=== PATIENT | male | born 1965 | race African-American/Black ===

== ENCOUNTER 2017-02-07 12:11 | Emergency (ER) | payer OTHER ==
[~2017-02-07] VITALS: Ht 172.7 cm; Wt 69.1 kg
[~2017-02-07 12:11] MED LIST: ASPI81TA42 PO; CARV12 PO; DOCU250C91 PO; HYDR-4174 PO; INSLAN SQ; INSU100C3 SQ; MULT1TAB11 PO; NIFE60TA12 PO; OMEP40CA12 PO; PERCT10 PO; PHOSLOC PO
[2017-02-07 12:21] LABS: GLUCOSE,POINT OF CARE 179 MG/DL (70-110)
[2017-02-07 13:50] LABS: EOSINOPHILS % (AUTO) 1.8 % (1.0-6.0); HEMATOCRIT 37.7 % (41-53); HEMOGLOBIN 12.1 g/dL (13.5-17.5); LYMPHOCYTES # (AUTO) 0.6 K/uL (1.0-4.8); LYMPHOCYTES % (AUTO) 9.6 % (22.0-44.0); MEAN CORPUSCULAR HEMOGLOBIN 32.8 pg (26.0-34.0); MEAN CORPUSCULAR VOLUME 103 fL (80-100); MONOCYTES # (AUTO) 0.3 K/uL (0.1-1.0); MONOCYTES % (AUTO) 4.4 % (2.0-9.0); NEUTROPHILS # (AUTO) 5.7 K/uL (1.8-7.7); NEUTROPHILS % (AUTO) 84.2 % (40.0-70.0); PLATELET COUNT (AUTO) 267 K/uL (150-450); RED BLOOD CELL COUNT(AUTO) 3.68 MIL/uL (4.50-5.90); WHITE BLOOD COUNT (AUTO) 6.7 K/uL (4.5-11.0)
[2017-02-07 13:58] LABS: CALCIUM, TOTAL 8.7 mg/dL (8.8-10.5); CREATININE 6.19 mg/dL (0.60-1.30); POTASSIUM 5.3 mmol/L (3.5-5.1)
[2017-02-07 14:04] LABS: ALBUMIN 3.2 g/dL (3.4-5.0); BILIRUBIN,TOTAL 0.4 mg/dL (0.1-1.0); TOTAL PROTEIN, SERUM 8.1 g/dL (6.4-8.2)
[2017-02-07 14:19] LABS: RBC MORPHOLOGY COMMENT ABNORMAL RBC MORPH
[2017-02-07 16:14] VITALS: BP 115/62
[2017-02-07] MEDS ORDERED: OxyCODONE HCL/ACETAMINOPHEN 10-325 MG TABLET PO ONE (16:15)
[2017-02-07] MEDS ORDERED: CefTRIAXone 1 GM/DEXTROSE 50 ML IV ONE (16:30)
== END 2017-02-07 17:01 | disposition home or self-care (01) ==
LOC: EMS 12:13
DX: B35.3 Tinea pedis (principal); E11.22 Type 2 diabetes mellitus with diabetic chronic kidney disease; I12.0 Hypertensive chronic kidney disease with stage 5 chronic kidney disease or end stage renal disease; N18.6 End stage renal disease; E78.00 Pure hypercholesterolemia, unspecified; F17.210 Nicotine dependence, cigarettes, uncomplicated; Z99.2 Dependence on renal dialysis; Z79.4 Long term (current) use of insulin; Z88.8 Allergy status to other drugs, medicaments and biological substances; Z91.018 Allergy to other foods
CPT/HCPCS: 36415; 73630; 80053; 82962; 85025; 87070; 87077; 87205; 96374; 99285; 99406; J0696

== ENCOUNTER 2017-05-29 11:30 | Emergency (ER) | payer OTHER ==
[~2017-05-29] VITALS: Ht 172.7 cm; Wt 69.5 kg
[~2017-05-29 11:30] MED LIST changes: -CARV12 PO; -HYDR-4174 PO; -NIFE60TA12 PO
[2017-05-29 11:42] LABS: GLUCOSE,POINT OF CARE 350 MG/DL (70-110)
[2017-05-29 13:16] LABS: BASOPHILS # (AUTO) 0.02 K/uL (0.00-0.20); BASOPHILS % (AUTO) 0.3 % (0.0-2.0); EOSINOPHILS % (AUTO) 1.77 % (1.0-6.0); HEMATOCRIT 38.9 % (41-53); HEMOGLOBIN 12.8 g/dL (13.5-17.5); LYMPHOCYTES # (AUTO) 0.7 K/uL (1.0-4.8); LYMPHOCYTES % (AUTO) 11.2 % (22.0-44.0); MEAN CORPUSCULAR HEMOGLOBIN 32.7 pg (26.0-34.0); MEAN CORPUSCULAR HGB CONC 32.8 G/dL (31.0-37.0); MEAN CORPUSCULAR VOLUME 100 fL (80-100); MONOCYTES # (AUTO) 0.4 K/uL (0.1-1.0); MONOCYTES % (AUTO) 6.6 % (2.0-9.0); NEUTROPHILS # (AUTO) 4.7 K/uL (1.8-7.7); NEUTROPHILS % (AUTO) 80.1 % (40.0-70.0); PLATELET COUNT (AUTO) 154 K/uL (150-450); RED BLOOD CELL COUNT(AUTO) 3.91 MIL/uL (4.50-5.90); RED CELL DISTRIBUTION WIDTH 14.3 % (11.5-14.5); WHITE BLOOD COUNT (AUTO) 5.9 K/uL (4.5-11.0)
[2017-05-29 13:25] LABS: ANION GAP 12 mmol/L (8-16); CALCIUM, TOTAL 8.8 mg/dL (8.8-10.5); CARBON DIOXIDE 28 mmol/L (22-29); CHLORIDE 90 mmol/L (98-107); CREATININE 10.39 mg/dL (0.60-1.30); GLOMERULAR FILTR. RATE CALC 6 mL/min (>60); POTASSIUM 3.8 mmol/L (3.5-5.1); SODIUM SERUM 130 mmol/L (136-145); UREA NITROGEN, BLOOD 33 mg/dL (7-18)
[2017-05-29 13:30] LABS: ALANINE AMINOTRANSFERASE 28 U/L (12-78); ALBUMIN 3.7 g/dL (3.4-5.0); ASPARTATE AMINOTRANSFERASE 25 U/L (15-37); BILIRUBIN,TOTAL 0.6 mg/dL (0.1-1.0); TOTAL PROTEIN, SERUM 7.6 g/dL (6.4-8.2)
[2017-05-29] MEDS ORDERED: INSULIN REGULAR, HUMAN 100 UNITS/ML IVP ONE (14:45)
[2017-05-29] MEDS ORDERED: ONDANSETRON HCL 4 MG/2 ML VIAL IVP ONE ×2 (14:45→18:45)
[2017-05-29] MEDS ORDERED: SODIUM CHLORIDE 0.9% 1,000 ML IV ONE ×2 (14:45→17:45)
[2017-05-29] MEDS ORDERED: MORPHINE SULFATE 4 MG/ML SYRINGE IVP ONE (14:45)
[2017-05-29] MEDS ORDERED: HYDROmorphone 2 MG/ML SYRINGE IVP ONE ×3 (14:45→18:45)
[2017-05-29 15:12] LABS: GLUCOSE,POINT OF CARE 455 MG/DL (70-110)
[2017-05-29 17:17] LABS: GLUCOSE,POINT OF CARE 325 MG/DL (70-110)
[2017-05-29 18:17] LABS: GLUCOSE,POINT OF CARE 287 MG/DL (70-110)
[2017-05-29 20:36] VITALS: BP 131/79
== END 2017-05-29 20:55 | disposition home or self-care (01) ==
LOC: EMS 11:32
DX: R10.32 Left lower quadrant pain (principal); R11.2 Nausea with vomiting, unspecified; I12.0 Hypertensive chronic kidney disease with stage 5 chronic kidney disease or end stage renal disease; E11.22 Type 2 diabetes mellitus with diabetic chronic kidney disease; N18.6 End stage renal disease; E11.65 Type 2 diabetes mellitus with hyperglycemia; E78.00 Pure hypercholesterolemia, unspecified; F12.90 Cannabis use, unspecified, uncomplicated; F17.210 Nicotine dependence, cigarettes, uncomplicated; Z79.4 Long term (current) use of insulin; Z91.018 Allergy to other foods; Z99.2 Dependence on renal dialysis
CPT/HCPCS: 36415; 80053; 82009; 82962; 83690; 83880; 85025; 93005; 96361; 96374; 96375; 96376; 99285; J1170; J1815; J2405; J7030

== ENCOUNTER 2017-05-29 21:57 | Emergency (ER) | payer OTHER ==
[~2017-05-29] VITALS: Ht 172.7 cm; Wt 69.5 kg
[2017-05-29 22:15] VITALS: BP 139/78
[2017-05-29 22:27] LABS: GLUCOSE,POINT OF CARE 179 MG/DL (70-110)
== END 2017-05-30 00:06 | disposition left against medical advice (07) ==
LOC: EMS 21:57
DX: R10.9 Unspecified abdominal pain (principal); R11.10 Vomiting, unspecified; E11.9 Type 2 diabetes mellitus without complications; I11.9 Hypertensive heart disease without heart failure; E78.00 Pure hypercholesterolemia, unspecified; F17.210 Nicotine dependence, cigarettes, uncomplicated; Z53.21 Procedure and treatment not carried out due to patient leaving prior to being seen by health care provider
CPT/HCPCS: 82962

== ENCOUNTER 2019-04-02 18:03 | Inpatient (IN) | payer OTHER ==
[~2019-04-02] VITALS: Ht 175.3 cm; Wt 71.3 kg
[~2019-04-02 18:03] MED LIST changes: +AMLO-512 PO; +ASPI81TA40 PO; -ASPI81TA42 PO; +HYDR-2924 PO; +PARI1CAP PO; +TRAM50TA4 PO
[2019-04-02 19:46] LABS: GLUCOSE,POINT OF CARE 490 MG/DL (70-110)
[2019-04-02] MEDS ORDERED: ACETAMINOPHEN 325 MG TABLET PO PRN (21:15)
[2019-04-02] MEDS ORDERED: BISACODYL 10 MG RECTAL RECTAL SUPPOSITORY PR PRN (21:15)
[2019-04-02 21:18] LABS: BASOPHILS % (AUTO) 0.8 % (0.0-2.0); HEMATOCRIT 40.5 % (41-53); LYMPHOCYTES # (AUTO) 0.6 K/uL (1.0-4.8); LYMPHOCYTES % (AUTO) 9.5 % (22.0-44.0); MEAN CORPUSCULAR HEMOGLOBIN 30.1 pg (26.0-34.0); MEAN CORPUSCULAR HGB CONC 32.1 G/dL (31.0-37.0); MEAN CORPUSCULAR VOLUME 94 fL (80-100); MONOCYTES # (AUTO) 0.5 K/uL (0.1-1.0); NEUTROPHILS # (AUTO) 4.7 K/uL (1.8-7.7); NEUTROPHILS % (AUTO) 79.7 % (40.0-70.0); PLATELET COUNT (AUTO) 193 K/uL (150-450); RED BLOOD CELL COUNT(AUTO) 4.32 MIL/uL (4.50-5.90); RED CELL DISTRIBUTION WIDTH 16.2 % (11.5-14.5)
[2019-04-02] MEDS ORDERED: AmLODIPine BESYLATE 5 MG TABLET PO SCH (21:30)
[2019-04-02] MEDS ORDERED: HydrALAZINE HCL 20 MG/ML VIAL IVP ONE (21:30)
[2019-04-02] MEDS ORDERED: NITROGLYCERIN 0.4 MG SUBLINGUAL TABLET #25 SL ONE (21:30)
[2019-04-02] MEDS ORDERED: DEXTROSE 50%-WATER 25 GM/50 ML SYRINGE IVP PRN (21:30)
[2019-04-02] MEDS ORDERED: NITROGLYCERIN 2% (1 GM=INCH) PACKET TP ONE (21:30)
[2019-04-02 21:42] LABS: ALBUMIN 3.2 g/dL (3.4-5.0); BILIRUBIN,TOTAL 0.4 mg/dL (0.1-1.0); CALCIUM, TOTAL 8.2 mg/dL (8.8-10.5); CREATININE 10.54 mg/dL (0.60-1.30); POTASSIUM 5.4 mmol/L (3.5-5.1); TOTAL PROTEIN, SERUM 7.6 g/dL (6.4-8.2)
[2019-04-02] MEDS ORDERED: INSULIN REGULAR, HUMAN 100 UNITS/ML IVP ONE (21:45)
[2019-04-02] MEDS ORDERED: BUMETANIDE 0.25 MG/ML 4 ML VIAL IVP ONE (22:30)
[2019-04-02] MEDS: LOSARTAN POTASSIUM 50 MG TABLET PO SCH (22:30)
[2019-04-02 23:02] LABS: GLUCOSE,POINT OF CARE 473 MG/DL (70-110)
[2019-04-03] VITALS (8 sets, daily range): BP systolic 150–188; BP diastolic 75–96
[2019-04-03 00:56] LABS: GLUCOSE,POINT OF CARE 452 MG/DL (70-110)
[2019-04-03] MEDS: INSULIN LISPRO 100 UNITS/ML SQ PRN ×3 (02:47→21:25)
[2019-04-03 07:54] LABS: GLUCOMETER DEV NAME(LOC) 5S.1; GLUCOSE,POINT OF CARE 437 MG/DL (70-110)
[2019-04-03] MEDS: DOCUSATE SODIUM 100 MG CAPSULE PO SCH ×2 (08:24→21:18)
[2019-04-03] MEDS: LABETALOL HCL 100 MG TABLET PO SCH ×2 (08:24→21:18)
[2019-04-03] MEDS: FAMOTIDINE 20 MG TABLET PO SCH (08:24)
[2019-04-03] MEDS: LOSARTAN POTASSIUM 50 MG TABLET PO SCH ×2 (08:24→21:18)
[2019-04-03] MEDS: ASPIRIN 81 MG CHEWABLE TABLET PO SCH (08:24)
[2019-04-03] MEDS: HEPARIN SODIUM,PORCINE 5,000 UNITS/ML VIAL SQ SCH ×3 (08:26→21:18)
[2019-04-03] MEDS: INSULIN GLARGINE,HUM.REC.ANLOG 100 UNITS/ML SQ SCH ×2 (08:29→21:25)
[2019-04-03] MEDS ORDERED: SODIUM CHLORIDE 0.9% 2,000 ML IV ONE (08:47)
[2019-04-03 11:14] LABS: GLUCOMETER DEV NAME(LOC) 5S.1; GLUCOSE,POINT OF CARE 170 MG/DL (70-110)
[2019-04-03 12:40] LABS: GLUCOMETER DEV NAME(LOC) 5S.1; GLUCOSE,POINT OF CARE 91 MG/DL (70-110)
[2019-04-03] MEDS: OxyCODONE HCL/ACETAMINOPHEN 5-325 MG TABLET PO PRN (14:04)
[2019-04-03] MEDS: CloNIDine HCL 0.1 MG TABLET PO PRN (14:04)
[2019-04-03] MEDS ORDERED: AmLODIPine BESYLATE 10 MG TABLET PO SCH (21:00)
[2019-04-04 04:33] VITALS: BP 165/88
[2019-04-04] MEDS: OxyCODONE HCL/ACETAMINOPHEN 5-325 MG TABLET PO PRN ×2 (04:42→09:17)
[2019-04-04 07:45] LABS: GLUCOMETER DEV NAME(LOC) 5S.1; GLUCOSE,POINT OF CARE 184 MG/DL (70-110)
[2019-04-04 08:20] VITALS: BP 177/92
[2019-04-04] MEDS: ASPIRIN 81 MG CHEWABLE TABLET PO SCH (09:15)
[2019-04-04] MEDS: FAMOTIDINE 20 MG TABLET PO SCH (09:15)
[2019-04-04] MEDS: LOSARTAN POTASSIUM 50 MG TABLET PO SCH (09:15)
[2019-04-04] MEDS: LABETALOL HCL 100 MG TABLET PO SCH (09:15)
[2019-04-04] MEDS: DOCUSATE SODIUM 100 MG CAPSULE PO SCH (09:16)
[2019-04-04] MEDS: HEPARIN SODIUM,PORCINE 5,000 UNITS/ML VIAL SQ SCH (09:16)
[2019-04-04] MEDS: INSULIN GLARGINE,HUM.REC.ANLOG 100 UNITS/ML SQ SCH (09:17)
[2019-04-04] MEDS ORDERED: MANNITOL 25%-12.5 GM/50 ML VIAL IVP PRN (11:00)
[2019-04-04] MEDS: CloNIDine HCL 0.1 MG TABLET PO PRN (12:30)
[2019-04-04 13:14] LABS: GLUCOMETER DEV NAME(LOC) 5N.2; GLUCOSE,POINT OF CARE 97 MG/DL (70-110)
[2019-04-05] MEDS ORDERED: PARICALCITOL 1 MCG CAPSULE PO SCH (09:00)
[2019-04-06 06:39] LABS: GLUCOMETER DEV NAME(LOC) 5S.3; GLUCOSE,POINT OF CARE 325 MG/DL (70-110)
[2019-04-06 06:40] LABS: GLUCOMETER DEV NAME(LOC) 5S.3; GLUCOSE,POINT OF CARE 233 MG/DL (70-110)
[2019-04-06 06:40] LABS: GLUCOMETER DEV NAME(LOC) 5S.3; GLUCOSE,POINT OF CARE 99 MG/DL (70-110)
[2019-04-06 06:40] LABS: GLUCOMETER DEV NAME(LOC) 5S.3; GLUCOSE,POINT OF CARE 45 MG/DL (70-110)
== END 2019-04-04 14:06 | disposition home or self-care (01) | DRG 425 ==
LOC: EMS 18:05 → 5S 04-03 00:37
PROVIDERS: ADMIT Internal Medicine; ATTEND Internal Medicine
PROC: 5A1D70Z Performance of Urinary Filtration, Intermittent, Less than 6 Hours Per Day (ICD-10-PCS; principal; 2019-04-03)
PROC: 5A1D70Z Performance of Urinary Filtration, Intermittent, Less than 6 Hours Per Day (ICD-10-PCS; 2019-04-04)
DX: E87.5 Hyperkalemia (principal); I13.2 Hypertensive heart and chronic kidney disease with heart failure and with stage 5 chronic kidney disease, or end stage renal disease; E44.0 Moderate protein-calorie malnutrition; E11.40 Type 2 diabetes mellitus with diabetic neuropathy, unspecified; E11.22 Type 2 diabetes mellitus with diabetic chronic kidney disease; E87.2 Acidosis; I16.1 Hypertensive emergency; N18.6 End stage renal disease; E11.65 Type 2 diabetes mellitus with hyperglycemia; E87.1 Hypo-osmolality and hyponatremia; E83.51 Hypocalcemia; E83.39 Other disorders of phosphorus metabolism; D63.8 Anemia in other chronic diseases classified elsewhere; E78.00 Pure hypercholesterolemia, unspecified; G89.29 Other chronic pain; I50.9 Heart failure, unspecified; F12.90 Cannabis use, unspecified, uncomplicated; F17.210 Nicotine dependence, cigarettes, uncomplicated; N25.81 Secondary hyperparathyroidism of renal origin; R62.7 Adult failure to thrive; Z82.49 Family history of ischemic heart disease and other diseases of the circulatory system; Z79.4 Long term (current) use of insulin; Z91.19 Patient's noncompliance with other medical treatment and regimen; Z68.23 Body mass index [BMI] 23.0-23.9, adult; Z91.018 Allergy to other foods; Z83.3 Family history of diabetes mellitus; Z99.2 Dependence on renal dialysis; Z79.899 Other long term (current) drug therapy
CPT/HCPCS: 87081; 93005; 96374; 96375; G0378; J0360; J1644; J1815; J3490; J7030

== ENCOUNTER 2019-05-17 09:27 | Emergency (ER) | payer OTHER ==
[~2019-05-17] VITALS: Ht 175.3 cm; Wt 75.0 kg
[~2019-05-17 09:27] MED LIST changes: -AMLO-512 PO; +AMLO10TA7 PO; -PARI1CAP PO; +PARI1CAP11 PO
[2019-05-17] MEDS ORDERED: HydrALAZINE HCL 25 MG TABLET PO ONE (09:45)
[2019-05-17] MEDS ORDERED: AmLODIPine BESYLATE 5 MG TABLET PO ONE (09:45)
[2019-05-17 09:53] LABS: BASOPHILS % (AUTO) 3.3 % (0.0-2.0); EOSINOPHILS % (AUTO) 8.8 % (1.0-6.0); HEMOGLOBIN 12.6 g/dL (13.5-17.5); LYMPHOCYTES # (AUTO) 0.9 K/uL (1.0-4.8); LYMPHOCYTES % (AUTO) 22.1 % (22.0-44.0); MEAN CORPUSCULAR HEMOGLOBIN 30.3 pg (26.0-34.0); MEAN CORPUSCULAR HGB CONC 32.2 G/dL (31.0-37.0); MEAN CORPUSCULAR VOLUME 94 fL (80-100); MONOCYTES # (AUTO) 0.6 K/uL (0.1-1.0); MONOCYTES % (AUTO) 14.8 % (2.0-9.0); NEUTROPHILS # (AUTO) 2.1 K/uL (1.8-7.7); PLATELET COUNT (AUTO) 141 K/uL (150-450); RED BLOOD CELL COUNT(AUTO) 4.15 MIL/uL (4.50-5.90); RED CELL DISTRIBUTION WIDTH 15.7 % (11.5-14.5)
[2019-05-17 10:32] LABS: CALCIUM, TOTAL 8.9 mg/dL (8.8-10.5); CREATININE 6.97 mg/dL (0.60-1.30); POTASSIUM 3.5 mmol/L (3.5-5.1)
[2019-05-17 10:37] LABS: ALBUMIN 3.5 g/dL (3.4-5.0); BILIRUBIN,TOTAL 0.5 mg/dL (0.1-1.0); TOTAL PROTEIN, SERUM 7.5 g/dL (6.4-8.2)
[2019-05-17 11:36] LABS: GLUCOSE,POINT OF CARE 130 MG/DL (70-110)
[2019-05-17 12:06] LABS: GLUCOSE,POINT OF CARE 107 MG/DL (70-110)
[2019-05-17 13:15] LABS: GLUCOSE,POINT OF CARE 160 MG/DL (70-110)
[2019-05-17 13:21] VITALS: BP 140/67
== END 2019-05-17 13:32 | disposition home or self-care (01) ==
LOC: EMS 09:28
DX: E11.649 Type 2 diabetes mellitus with hypoglycemia without coma (principal); I13.11 Hypertensive heart and chronic kidney disease without heart failure, with stage 5 chronic kidney disease, or end stage renal disease; E11.22 Type 2 diabetes mellitus with diabetic chronic kidney disease; N18.6 End stage renal disease; E78.00 Pure hypercholesterolemia, unspecified; F17.210 Nicotine dependence, cigarettes, uncomplicated; F12.90 Cannabis use, unspecified, uncomplicated; Z99.2 Dependence on renal dialysis; Z79.4 Long term (current) use of insulin; Z79.82 Long term (current) use of aspirin; Z91.018 Allergy to other foods

== ENCOUNTER 2019-05-24 23:32 | Emergency (ER) | payer OTHER ==
[~2019-05-24] VITALS: Ht 172.7 cm; Wt 70.5 kg
[2019-05-25] MEDS ORDERED: OxyCODONE HCL/ACETAMINOPHEN 10-325 MG TABLET PO ONE (00:30)
[2019-05-25 00:40] LABS: GLUCOSE,POINT OF CARE 85 MG/DL (70-110)
[2019-05-25 01:39] VITALS: BP 146/89
== END 2019-05-25 01:59 | disposition home or self-care (01) ==
LOC: EMS 23:34
DX: M54.5 Low back pain (principal); E11.9 Type 2 diabetes mellitus without complications; G89.29 Other chronic pain; I11.9 Hypertensive heart disease without heart failure; E78.00 Pure hypercholesterolemia, unspecified; F17.210 Nicotine dependence, cigarettes, uncomplicated; F12.90 Cannabis use, unspecified, uncomplicated; Z79.4 Long term (current) use of insulin; Z91.018 Allergy to other foods

== ENCOUNTER 2019-06-16 11:36 | Inpatient (IN) | payer OTHER ==
[~2019-06-16] VITALS: Ht 172.7 cm; Wt 64.2 kg
[2019-06-16 12:11] LABS: GLUCOSE,POINT OF CARE 266 MG/DL (70-110)
[2019-06-16 12:32] LABS: EOSINOPHILS % (AUTO) 2.5 % (1.0-6.0); HEMATOCRIT 31.4 % (41-53); HEMOGLOBIN 10.1 g/dL (13.5-17.5); LYMPHOCYTES # (AUTO) 0.8 K/uL (1.0-4.8); LYMPHOCYTES % (AUTO) 10.2 % (22.0-44.0); MEAN CORPUSCULAR HEMOGLOBIN 29.9 pg (26.0-34.0); MEAN CORPUSCULAR HGB CONC 32.1 G/dL (31.0-37.0); MEAN CORPUSCULAR VOLUME 93 fL (80-100); MONOCYTES # (AUTO) 0.9 K/uL (0.1-1.0); MONOCYTES % (AUTO) 11.6 % (2.0-9.0); NEUTROPHILS # (AUTO) 5.7 K/uL (1.8-7.7); NEUTROPHILS % (AUTO) 74.7 % (40.0-70.0); PLATELET COUNT (AUTO) 165 K/uL (150-450); RED BLOOD CELL COUNT(AUTO) 3.36 MIL/uL (4.50-5.90)
[2019-06-16 12:44] LABS: INR 0.9 (0.9-1.1); PROTHROMBIN TIME 9.9 SEC (9.4-11.6)
[2019-06-16 12:51] LABS: ALBUMIN 3.1 g/dL (3.4-5.0); BILIRUBIN,TOTAL 0.5 mg/dL (0.1-1.0); CALCIUM, TOTAL 9.1 mg/dL (8.8-10.5); CREATININE 7.14 mg/dL (0.60-1.30); TOTAL PROTEIN, SERUM 7.3 g/dL (6.4-8.2)
[2019-06-16 12:53] LABS: POTASSIUM 6.1 mmol/L (3.5-5.1)
[2019-06-16] MEDS ORDERED: CALCIUM GLUCONATE 1,000 MG in DEXTROSE 5%-WATER 50 ML IV ONE (13:00)
[2019-06-16] MEDS ORDERED: ALBUTEROL SULFATE 5 MG/ML 20 ML NEB SOLN [BULK] NEB ONE (13:00)
[2019-06-16] MEDS ORDERED: DEXTROSE 50%-WATER 25 GM/50 ML SYRINGE IVP ONE (13:00)
[2019-06-16] MEDS ORDERED: INSULIN REGULAR, HUMAN 100 UNITS/ML IVP ONE (13:00)
[2019-06-16] MEDS ORDERED: SODIUM POLYSTYRENE SULFONATE 15 GM/60 ML SUSPENSION BOTTLE PO ONE (13:00)
[2019-06-16] MEDS ORDERED: ACETAMINOPHEN 325 MG TABLET PO PRN ×2 (14:00→15:30)
[2019-06-16] MEDS ORDERED: ACETAMINOPHEN 500 MG TABLET PO ONE (14:00)
[2019-06-16] MEDS ORDERED: 0.9% SODIUM CHLORIDE 10 ML SYRINGE IVP PRN (14:00)
[2019-06-16] MEDS ORDERED: ONDANSETRON HCL 4 MG/2 ML VIAL IVP PRN ×2 (14:00→15:30)
[2019-06-16] MEDS ORDERED: MAGNESIUM HYDROXIDE SUSPENSION 30 ML UDCUP PO PRN (15:30)
[2019-06-16] MEDS ORDERED: HYDROCODONE/ACETAMINOPHEN 5-325 MG TABLET PO PRN (15:30)
[2019-06-16] MEDS ORDERED: BISACODYL 10 MG RECTAL RECTAL SUPPOSITORY PR PRN (15:30)
[2019-06-16] MEDS ORDERED: ZOLPIDEM TARTRATE 5 MG TABLET PO PRN (15:30)
[2019-06-16] MEDS: HEPARIN SODIUM,PORCINE 5,000 UNITS/ML VIAL SQ SCH ×2 (15:54→23:53)
[2019-06-16] MEDS: HydrALAZINE HCL 50 MG TABLET PO SCH ×2 (15:54→21:24)
[2019-06-16 16:26] LABS: GLUCOSE,POINT OF CARE 276 MG/DL (70-110)
[2019-06-16] MEDS: CALCIUM ACETATE 667 MG CAPSULE PO SCH (16:33)
[2019-06-16] MEDS: MORPHINE SULFATE 2 MG/ML SYRINGE IVP PRN (19:50)
[2019-06-16] MEDS: INSULIN GLARGINE,HUM.REC.ANLOG 100 UNITS/ML SQ SCH (21:24)
[2019-06-16] MEDS: DOCUSATE SODIUM 100 MG CAPSULE PO SCH (21:24)
[2019-06-16 21:25] LABS: GLUCOSE,POINT OF CARE 309 MG/DL (70-110)
[2019-06-16 22:39] LABS: GLUCOSE,POINT OF CARE 323 MG/DL (70-110)
[2019-06-16 23:16] VITALS: BP 177/80
[2019-06-16] MEDS ORDERED: DEXTROSE 50%-WATER 25 GM/50 ML SYRINGE IVP PRN (23:45)
[2019-06-17] MEDS: MORPHINE SULFATE 2 MG/ML SYRINGE IVP PRN ×3 (00:06→20:16)
[2019-06-17] MEDS: INSULIN LISPRO 100 UNITS/ML SQ PRN ×4 (00:14→20:49)
[2019-06-17 05:22] VITALS: BP 167/88
[2019-06-17 06:44] LABS: BASOPHILS % (AUTO) 1.7 % (0.0-2.0); EOSINOPHILS % (AUTO) 2.2 % (1.0-6.0); HEMATOCRIT 32.7 % (41-53); HEMOGLOBIN 10.5 g/dL (13.5-17.5); LYMPHOCYTES # (AUTO) 1.1 K/uL (1.0-4.8); LYMPHOCYTES % (AUTO) 13.6 % (22.0-44.0); MEAN CORPUSCULAR HEMOGLOBIN 29.9 pg (26.0-34.0); MEAN CORPUSCULAR HGB CONC 32.2 G/dL (31.0-37.0); MEAN CORPUSCULAR VOLUME 93 fL (80-100); MONOCYTES # (AUTO) 0.9 K/uL (0.1-1.0); MONOCYTES % (AUTO) 11.5 % (2.0-9.0); NEUTROPHILS # (AUTO) 5.8 K/uL (1.8-7.7); PLATELET COUNT (AUTO) 192 K/uL (150-450); RED BLOOD CELL COUNT(AUTO) 3.52 MIL/uL (4.50-5.90); RED CELL DISTRIBUTION WIDTH 17.1 % (11.5-14.5)
[2019-06-17 07:03] LABS: ALBUMIN 2.9 g/dL (3.4-5.0); BILIRUBIN,TOTAL 0.5 mg/dL (0.1-1.0); CALCIUM, TOTAL 8.6 mg/dL (8.8-10.5); CREATININE 5.46 mg/dL (0.60-1.30); POTASSIUM 4.3 mmol/L (3.5-5.1)
[2019-06-17] MEDS: INSULIN GLARGINE,HUM.REC.ANLOG 100 UNITS/ML SQ SCH ×2 (08:31→20:49)
[2019-06-17] MEDS: HydrALAZINE HCL 50 MG TABLET PO SCH ×3 (08:45→20:16)
[2019-06-17] MEDS: HEPARIN SODIUM,PORCINE 5,000 UNITS/ML VIAL SQ SCH ×2 (08:45→20:39)
[2019-06-17] MEDS: AmLODIPine BESYLATE 10 MG TABLET PO SCH (08:45)
[2019-06-17] MEDS: CALCIUM ACETATE 667 MG CAPSULE PO SCH ×3 (08:45→18:01)
[2019-06-17] MEDS: DOCUSATE SODIUM 100 MG CAPSULE PO SCH ×2 (08:46→20:16)
[2019-06-17] MEDS: ASPIRIN 81 MG EC TABLET PO SCH (08:46)
[2019-06-17] MEDS: PANTOPRAZOLE SODIUM 40 MG DR TABLET PO SCH (08:56)
[2019-06-17 11:22] VITALS: BP 143/101
[2019-06-17 15:25] VITALS: BP 159/84
[2019-06-17 19:18] VITALS: BP 174/89
[2019-06-18] MEDS: CloNIDine HCL 0.1 MG TABLET PO PRN ×2 (00:14→12:13)
[2019-06-18] MEDS: MORPHINE SULFATE 2 MG/ML SYRINGE IVP PRN ×2 (01:12→10:50)
[2019-06-18 04:56] VITALS: BP 142/79
[2019-06-18 06:57] LABS: GLUCOMETER DEV NAME(LOC) 5N.1; GLUCOSE,POINT OF CARE 352 MG/DL (70-110)
[2019-06-18 06:57] LABS: GLUCOMETER DEV NAME(LOC) 5N.1; GLUCOSE,POINT OF CARE 206 MG/DL (70-110)
[2019-06-18 06:57] LABS: GLUCOMETER DEV NAME(LOC) 5N.2; GLUCOSE,POINT OF CARE 77 MG/DL (70-110)
[2019-06-18 06:57] LABS: GLUCOMETER DEV NAME(LOC) 5N.1; GLUCOSE,POINT OF CARE 310 MG/DL (70-110)
[2019-06-18 06:58] LABS: GLUCOMETER DEV NAME(LOC) 5N.1; GLUCOSE,POINT OF CARE 108 MG/DL (70-110)
[2019-06-18 06:58] LABS: GLUCOMETER DEV NAME(LOC) 5N.2; GLUCOSE,POINT OF CARE 375 MG/DL (70-110)
[2019-06-18 07:45] VITALS: BP 190/83
[2019-06-18] MEDS: HEPARIN SODIUM,PORCINE 5,000 UNITS/ML VIAL SQ SCH ×2 (07:46→21:00)
[2019-06-18] MEDS: PANTOPRAZOLE SODIUM 40 MG DR TABLET PO SCH (07:47)
[2019-06-18] MEDS: HydrALAZINE HCL 50 MG TABLET PO SCH ×3 (07:48→21:21)
[2019-06-18] MEDS: CALCIUM ACETATE 667 MG CAPSULE PO SCH ×3 (07:48→18:00)
[2019-06-18] MEDS: ASPIRIN 81 MG EC TABLET PO SCH (07:48)
[2019-06-18] MEDS: AmLODIPine BESYLATE 10 MG TABLET PO SCH (07:48)
[2019-06-18] MEDS: DOCUSATE SODIUM 100 MG CAPSULE PO SCH ×2 (07:48→21:22)
[2019-06-18] MEDS: INSULIN GLARGINE,HUM.REC.ANLOG 100 UNITS/ML SQ SCH ×2 (08:08→21:00)
[2019-06-18] MEDS ORDERED: PARICALCITOL 5 MCG/1 ML VIAL IVP SCH (09:00)
[2019-06-18 11:36] VITALS: BP 178/92
[2019-06-18] MEDS: INSULIN LISPRO 100 UNITS/ML SQ PRN (12:14)
[2019-06-18] MEDS ORDERED: SODIUM CHLORIDE 0.9% 1,000 ML IV ONE ×2 (12:34→17:40)
[2019-06-18 15:37] VITALS: BP 182/91
[2019-06-18 16:00] LABS: GLUCOMETER DEV NAME(LOC) 5N.1; GLUCOSE,POINT OF CARE 233 MG/DL (70-110)
[2019-06-18 19:23] VITALS: BP 151/83
[2019-06-18 23:29] VITALS: BP 164/86
[2019-06-19 01:08] LABS: GLUCOMETER DEV NAME(LOC) 5N.2; GLUCOSE,POINT OF CARE 87 MG/DL (70-110)
[2019-06-19 01:08] LABS: GLUCOMETER DEV NAME(LOC) 5N.2; GLUCOSE,POINT OF CARE 159 MG/DL (70-110)
[2019-06-19 04:14] VITALS: BP 163/78
[2019-06-19] MEDS: CALCIUM ACETATE 667 MG CAPSULE PO SCH (08:30)
[2019-06-19] MEDS: PANTOPRAZOLE SODIUM 40 MG DR TABLET PO SCH (08:30)
[2019-06-19] MEDS: HydrALAZINE HCL 50 MG TABLET PO SCH (08:31)
[2019-06-19] MEDS: DOCUSATE SODIUM 100 MG CAPSULE PO SCH (08:31)
[2019-06-19] MEDS: ASPIRIN 81 MG EC TABLET PO SCH (08:31)
[2019-06-19] MEDS: AmLODIPine BESYLATE 10 MG TABLET PO SCH (08:31)
[2019-06-19] MEDS: HEPARIN SODIUM,PORCINE 5,000 UNITS/ML VIAL SQ SCH (08:32)
[2019-06-19] MEDS: INSULIN GLARGINE,HUM.REC.ANLOG 100 UNITS/ML SQ SCH (08:35)
[2019-06-19 08:40] VITALS: BP 168/79
[2019-06-19] MEDS ORDERED: EPOETIN ALFA 10,000 UNITS/ML VIAL SQ SCH (09:00)
[2019-06-19] MEDS ORDERED: SODIUM CHLORIDE 0.9% 2,000 ML IV ONE (11:24)
[2019-06-20 00:50] LABS: GLUCOMETER DEV NAME(LOC) 5N.2; GLUCOSE,POINT OF CARE 155 MG/DL (70-110)
[2019-06-20 04:31] LABS: GLUCOMETER DEV NAME(LOC) 5N.1; GLUCOSE,POINT OF CARE 170 MG/DL (70-110)
== END 2019-06-19 11:15 | disposition home or self-care (01) | DRG 194 ==
LOC: EMS 11:45 → 5N 18:31
PROVIDERS: ADMIT Internal Medicine; ATTEND Internal Medicine
PROC: 5A1D70Z Performance of Urinary Filtration, Intermittent, Less than 6 Hours Per Day (ICD-10-PCS; principal; 2019-06-16)
PROC: 5A1D70Z Performance of Urinary Filtration, Intermittent, Less than 6 Hours Per Day (ICD-10-PCS; 2019-06-18)
DX: I13.2 Hypertensive heart and chronic kidney disease with heart failure and with stage 5 chronic kidney disease, or end stage renal disease (principal); I47.2 Ventricular tachycardia; E87.2 Acidosis; E46 Unspecified protein-calorie malnutrition; N18.6 End stage renal disease; E87.5 Hyperkalemia; I50.33 Acute on chronic diastolic (congestive) heart failure; E11.65 Type 2 diabetes mellitus with hyperglycemia; E83.39 Other disorders of phosphorus metabolism; E83.51 Hypocalcemia; D63.1 Anemia in chronic kidney disease; I16.0 Hypertensive urgency; E78.5 Hyperlipidemia, unspecified; F17.210 Nicotine dependence, cigarettes, uncomplicated; K21.9 Gastro-esophageal reflux disease without esophagitis; N25.81 Secondary hyperparathyroidism of renal origin; F12.90 Cannabis use, unspecified, uncomplicated; M54.5 Low back pain; E87.1 Hypo-osmolality and hyponatremia; R62.7 Adult failure to thrive; K31.9 Disease of stomach and duodenum, unspecified; E11.40 Type 2 diabetes mellitus with diabetic neuropathy, unspecified; E11.22 Type 2 diabetes mellitus with diabetic chronic kidney disease; E78.00 Pure hypercholesterolemia, unspecified; I25.10 Atherosclerotic heart disease of native coronary artery without angina pectoris; Z79.4 Long term (current) use of insulin; Z82.49 Family history of ischemic heart disease and other diseases of the circulatory system; Z99.2 Dependence on renal dialysis; Z83.3 Family history of diabetes mellitus; Z91.19 Patient's noncompliance with other medical treatment and regimen; Z68.21 Body mass index [BMI] 21.0-21.9, adult; Z91.018 Allergy to other foods; Z79.899 Other long term (current) drug therapy; Z79.82 Long term (current) use of aspirin; Z71.6 Tobacco abuse counseling
CPT/HCPCS: 83735; 87081; 93005; 93306; 99406; J0610; J0885; J1644; J1815; J2270; J2501; J7030; J7060

== ENCOUNTER 2019-06-22 05:28 | Inpatient (IN) | payer OTHER ==
[~2019-06-22] VITALS: Ht 172.7 cm; Wt 72.4 kg
[~2019-06-22 05:28] MED LIST changes: -PERCT10 PO
[2019-06-22] MEDS ORDERED: NALOXONE HCL 1 MG/ML 2 ML SYG IVP ONE (06:45)
[2019-06-22 09:31] LABS: BASOPHILS % (AUTO) 1.5 % (0.0-2.0); EOSINOPHILS % (AUTO) 3.7 % (1.0-6.0); HEMATOCRIT 29.2 % (41-53); HEMOGLOBIN 9.3 g/dL (13.5-17.5); LYMPHOCYTES # (AUTO) 0.9 K/uL (1.0-4.8); LYMPHOCYTES % (AUTO) 12.2 % (22.0-44.0); MEAN CORPUSCULAR HEMOGLOBIN 30.2 pg (26.0-34.0); MEAN CORPUSCULAR HGB CONC 31.9 G/dL (31.0-37.0); MEAN CORPUSCULAR VOLUME 94 fL (80-100); MONOCYTES # (AUTO) 0.7 K/uL (0.1-1.0); MONOCYTES % (AUTO) 9.4 % (2.0-9.0); NEUTROPHILS # (AUTO) 5.6 K/uL (1.8-7.7); NEUTROPHILS % (AUTO) 73.2 % (40.0-70.0); PLATELET COUNT (AUTO) 198 K/uL (150-450); RED BLOOD CELL COUNT(AUTO) 3.09 MIL/uL (4.50-5.90); RED CELL DISTRIBUTION WIDTH 17.6 % (11.5-14.5)
[2019-06-22 09:47] LABS: ANION GAP 11 mmol/L (8-16); CALCIUM, TOTAL 8.9 mg/dL (8.8-10.5); CARBON DIOXIDE 28 mmol/L (22-29); CHLORIDE 100 mmol/L (98-107); CREATININE 7.44 mg/dL (0.60-1.30); GLOMERULAR FILTR. RATE CALC 9 mL/min (>60); GLUCOSE,RANDOM 200 mg/dL (70-110); POTASSIUM 5.4 mmol/L (3.5-5.1); SODIUM SERUM 139 mmol/L (136-145); UREA NITROGEN, BLOOD 48 mg/dL (7-18)
[2019-06-22 09:53] LABS: ALANINE AMINOTRANSFERASE 38 U/L (12-78); ALBUMIN 3.2 g/dL (3.4-5.0); ALKALINE PHOSPHATASE 151 U/L (46-116); ASPARTATE AMINOTRANSFERASE 34 U/L (15-37); BILIRUBIN,TOTAL 0.4 mg/dL (0.1-1.0); TOTAL PROTEIN, SERUM 7.3 g/dL (6.4-8.2)
[2019-06-22 09:55] LABS: LACTIC ACID 0.9 mmol/L (0.4-2.0)
[2019-06-22 10:36] LABS: GLUCOSE,POINT OF CARE 188 MG/DL (70-110)
[2019-06-22] MEDS ORDERED: KETOROLAC TROMETHAMINE 30 MG/ML VIAL IM ONE (10:45)
[2019-06-22] MEDS: VITAMIN B COMP/VIT C/FOLIC ACID CAPSULE PO SCH (20:15)
[2019-06-22] MEDS: DOCUSATE SODIUM 250 MG CAPSULE PO SCH (20:15)
[2019-06-22] MEDS: FAMOTIDINE 20 MG TABLET PO SCH (20:15)
[2019-06-22] MEDS ORDERED: BISACODYL 10 MG RECTAL RECTAL SUPPOSITORY PR PRN (20:15)
[2019-06-22] MEDS ORDERED: ACETAMINOPHEN 325 MG TABLET PO PRN (20:15)
[2019-06-22] MEDS: ASPIRIN 81 MG EC TABLET PO SCH (20:15)
[2019-06-22] MEDS ORDERED: ONDANSETRON HCL 4 MG/2 ML VIAL IVP PRN (20:15)
[2019-06-22] MEDS ORDERED: HydrALAZINE HCL 20 MG/ML VIAL IVP ONE (20:15)
[2019-06-22] MEDS: AmLODIPine BESYLATE 10 MG TABLET PO SCH (20:15)
[2019-06-22] MEDS ORDERED: DEXTROSE 50%-WATER 25 GM/50 ML SYRINGE IVP PRN (20:15)
[2019-06-22] MEDS ORDERED: LABETALOL HCL 5 MG/ML 20 ML VIAL IVP PRN (20:30)
[2019-06-22 21:00] LABS: GLUCOSE,POINT OF CARE 262 MG/DL (70-110)
[2019-06-22] MEDS: CloNIDine HCL 0.1 MG TABLET PO SCH (21:00)
[2019-06-22 21:22] LABS: PROTHROMBIN TIME 10.2 SEC (9.4-11.6)
[2019-06-22 21:56] VITALS: BP 191/93
[2019-06-22] MEDS ORDERED: INSULIN GLARGINE,HUM.REC.ANLOG 100 UNITS/ML SQ SCH (22:00)
[2019-06-22] MEDS: INSULIN LISPRO 100 UNITS/ML SQ PRN (22:45)
[2019-06-22] MEDS: HydrALAZINE HCL 50 MG TABLET PO SCH (22:52)
[2019-06-22] MEDS: HEPARIN SODIUM,PORCINE 5,000 UNITS/ML VIAL SQ SCH (23:01)
[2019-06-23] VITALS (9 sets, daily range): BP systolic 134–193; BP diastolic 68–103
[2019-06-23 04:11] LABS: GLUCOMETER DEV NAME(LOC) 5N.1; GLUCOSE,POINT OF CARE 275 MG/DL (70-110)
[2019-06-23] MEDS ORDERED: SODIUM CHLORIDE 0.9% 1,000 ML IV ONE (06:05)
[2019-06-23 08:10] LABS: ALBUMIN 2.8 g/dL (3.4-5.0); BILIRUBIN,TOTAL 0.4 mg/dL (0.1-1.0); CALCIUM, TOTAL 8.4 mg/dL (8.8-10.5); CREATININE 6.21 mg/dL (0.60-1.30); POTASSIUM 4.3 mmol/L (3.5-5.1); TOTAL PROTEIN, SERUM 6.8 g/dL (6.4-8.2)
[2019-06-23 08:21] LABS: GLUCOMETER DEV NAME(LOC) 5N.1; GLUCOSE,POINT OF CARE 146 MG/DL (70-110)
[2019-06-23 08:21] LABS: GLUCOMETER DEV NAME(LOC) 5N.1; GLUCOSE,POINT OF CARE 13 MG/DL (70-110)
[2019-06-23 08:39] LABS: BASOPHILS % (AUTO) 1.1 % (0.0-2.0); HEMATOCRIT 27.7 % (41-53); HEMOGLOBIN 9.3 g/dL (13.5-17.5); LYMPHOCYTES # (AUTO) 0.5 K/uL (1.0-4.8); LYMPHOCYTES % (AUTO) 5.2 % (22.0-44.0); MEAN CORPUSCULAR HEMOGLOBIN 31.2 pg (26.0-34.0); MEAN CORPUSCULAR HGB CONC 33.6 G/dL (31.0-37.0); MEAN CORPUSCULAR VOLUME 93 fL (80-100); MONOCYTES # (AUTO) 0.6 K/uL (0.1-1.0); MONOCYTES % (AUTO) 6.1 % (2.0-9.0); NEUTROPHILS # (AUTO) 7.8 K/uL (1.8-7.7); PLATELET COUNT (AUTO) 209 K/uL (150-450); RED BLOOD CELL COUNT(AUTO) 2.99 MIL/uL (4.50-5.90); RED CELL DISTRIBUTION WIDTH 17.5 % (11.5-14.5)
[2019-06-23 08:44] LABS: NEUTROPHILS % (AUTO) 85.6 % (40.0-70.0)
[2019-06-23] MEDS: CloNIDine HCL 0.1 MG TABLET PO SCH ×2 (09:48→16:59)
[2019-06-23] MEDS: VITAMIN B COMP/VIT C/FOLIC ACID CAPSULE PO SCH (10:40)
[2019-06-23] MEDS: HEPARIN SODIUM,PORCINE 5,000 UNITS/ML VIAL SQ SCH ×3 (10:41→23:35)
[2019-06-23] MEDS: HydrALAZINE HCL 50 MG TABLET PO SCH ×4 (10:41→20:58)
[2019-06-23] MEDS: ASPIRIN 81 MG EC TABLET PO SCH (10:41)
[2019-06-23] MEDS: DOCUSATE SODIUM 250 MG CAPSULE PO SCH (10:41)
[2019-06-23] MEDS: FAMOTIDINE 20 MG TABLET PO SCH (10:41)
[2019-06-23] MEDS: CALCIUM ACETATE 667 MG CAPSULE PO SCH ×3 (10:42→16:59)
[2019-06-23] MEDS ORDERED: SODIUM CHLORIDE 0.9% 2,000 ML IV PRN (11:00)
[2019-06-23] MEDS: AmLODIPine BESYLATE 10 MG TABLET PO SCH (11:49)
[2019-06-23] MEDS: VALSARTAN 160 MG TABLET PO SCH ×2 (13:23→21:00)
[2019-06-23] MEDS: HYDROCODONE/ACETAMINOPHEN 5-325 MG TABLET PO PRN ×2 (13:36→20:58)
[2019-06-23 16:16] LABS: GLUCOMETER DEV NAME(LOC) 5N.1; GLUCOSE,POINT OF CARE 68 MG/DL (70-110)
[2019-06-23 16:16] LABS: GLUCOMETER DEV NAME(LOC) 5N.1; GLUCOSE,POINT OF CARE 109 MG/DL (70-110)
[2019-06-23 16:16] LABS: GLUCOMETER DEV NAME(LOC) 5N.1; GLUCOSE,POINT OF CARE 58 MG/DL (70-110)
[2019-06-23 16:16] LABS: GLUCOMETER DEV NAME(LOC) 5N.1; GLUCOSE,POINT OF CARE 51 MG/DL (70-110)
[2019-06-23 16:16] LABS: GLUCOMETER DEV NAME(LOC) 5N.1; GLUCOSE,POINT OF CARE 167 MG/DL (70-110)
[2019-06-23] MEDS: INSULIN LISPRO 100 UNITS/ML SQ PRN ×2 (17:19→20:58)
[2019-06-23 20:16] LABS: GLUCOMETER DEV NAME(LOC) 5N.1; GLUCOSE,POINT OF CARE 299 MG/DL (70-110)
[2019-06-23] MEDS ORDERED: INSULIN GLARGINE,HUM.REC.ANLOG 100 UNITS/ML SQ SCH (22:00)
[2019-06-23 23:36] LABS: GLUCOMETER DEV NAME(LOC) 5S.2A; GLUCOSE,POINT OF CARE 218 MG/DL (70-110)
[2019-06-24] VITALS (7 sets, daily range): BP systolic 103–178; BP diastolic 55–92
[2019-06-24] MEDS: CloNIDine HCL 0.1 MG TABLET PO SCH ×2 (00:14→09:24)
[2019-06-24] MEDS: HYDROCODONE/ACETAMINOPHEN 5-325 MG TABLET PO PRN ×3 (01:18→09:23)
[2019-06-24] MEDS: INSULIN LISPRO 100 UNITS/ML SQ PRN ×4 (06:15→21:21)
[2019-06-24] MEDS: HEPARIN SODIUM,PORCINE 5,000 UNITS/ML VIAL SQ SCH ×3 (08:00→23:07)
[2019-06-24] MEDS: CALCIUM ACETATE 667 MG CAPSULE PO SCH ×3 (08:32→17:19)
[2019-06-24] MEDS: ASPIRIN 81 MG EC TABLET PO SCH (09:23)
[2019-06-24] MEDS: AmLODIPine BESYLATE 10 MG TABLET PO SCH (09:23)
[2019-06-24] MEDS: VITAMIN B COMP/VIT C/FOLIC ACID CAPSULE PO SCH (09:23)
[2019-06-24] MEDS: HydrALAZINE HCL 50 MG TABLET PO SCH ×4 (09:23→21:15)
[2019-06-24] MEDS: FAMOTIDINE 20 MG TABLET PO SCH (09:23)
[2019-06-24] MEDS: VALSARTAN 160 MG TABLET PO SCH ×2 (09:23→21:00)
[2019-06-24] MEDS: DOCUSATE SODIUM 250 MG CAPSULE PO SCH (09:24)
[2019-06-24 09:32] LABS: BASOPHILS % (AUTO) 1.8 % (0.0-2.0); EOSINOPHILS % (AUTO) 3.6 % (1.0-6.0); HEMATOCRIT 32.2 % (41-53); HEMOGLOBIN 10.4 g/dL (13.5-17.5); MEAN CORPUSCULAR HEMOGLOBIN 30.4 pg (26.0-34.0); MEAN CORPUSCULAR HGB CONC 32.2 G/dL (31.0-37.0); MEAN CORPUSCULAR VOLUME 94 fL (80-100); MONOCYTES # (AUTO) 0.7 K/uL (0.1-1.0); MONOCYTES % (AUTO) 10.6 % (2.0-9.0); NEUTROPHILS # (AUTO) 4.4 K/uL (1.8-7.7); PLATELET COUNT (AUTO) 245 K/uL (150-450); RED BLOOD CELL COUNT(AUTO) 3.41 MIL/uL (4.50-5.90); RED CELL DISTRIBUTION WIDTH 18.2 % (11.5-14.5)
[2019-06-24 09:47] LABS: POTASSIUM 5.4 mmol/L (3.5-5.1)
[2019-06-24 10:01] LABS: ALBUMIN 3.1 g/dL (3.4-5.0); BILIRUBIN,TOTAL 0.5 mg/dL (0.1-1.0); CALCIUM, TOTAL 8.5 mg/dL (8.8-10.5); CREATININE 6.81 mg/dL (0.60-1.30); TOTAL PROTEIN, SERUM 7.6 g/dL (6.4-8.2)
[2019-06-24] MEDS ORDERED: DEXTROSE 50%-WATER 25 GM/50 ML SYRINGE IVP PRN (13:30)
[2019-06-24 14:41] LABS: GLUCOMETER DEV NAME(LOC) 5S.1; GLUCOSE,POINT OF CARE 197 MG/DL (70-110)
[2019-06-24] MEDS ORDERED: INSULIN GLARGINE,HUM.REC.ANLOG 100 UNITS/ML SQ SCH (21:00)
[2019-06-25 01:02] LABS: GLUCOMETER DEV NAME(LOC) 5S.1; GLUCOSE,POINT OF CARE 193 MG/DL (70-110)
[2019-06-25] MEDS: HYDROCODONE/ACETAMINOPHEN 5-325 MG TABLET PO PRN (03:17)
[2019-06-25 04:20] VITALS: BP 136/65
[2019-06-25 06:17] LABS: GLUCOMETER DEV NAME(LOC) 5S.1; GLUCOSE,POINT OF CARE 34 MG/DL (70-110)
[2019-06-25 06:26] LABS: GLUCOMETER DEV NAME(LOC) 5S.2A; GLUCOSE,POINT OF CARE 192 MG/DL (70-110)
[2019-06-25 06:27] LABS: GLUCOMETER DEV NAME(LOC) 5S.2A; GLUCOSE,POINT OF CARE 418 MG/DL (70-110)
[2019-06-25 06:27] LABS: GLUCOMETER DEV NAME(LOC) 5S.2A; GLUCOSE,POINT OF CARE 128 MG/DL (70-110)
[2019-06-25 06:47] LABS: BASOPHILS % (AUTO) 1.9 % (0.0-2.0); EOSINOPHILS % (AUTO) 5.4 % (1.0-6.0); HEMATOCRIT 30.4 % (41-53); HEMOGLOBIN 10.2 g/dL (13.5-17.5); LYMPHOCYTES # (AUTO) 0.7 K/uL (1.0-4.8); MEAN CORPUSCULAR HEMOGLOBIN 31.4 pg (26.0-34.0); MEAN CORPUSCULAR HGB CONC 33.5 G/dL (31.0-37.0); MEAN CORPUSCULAR VOLUME 94 fL (80-100); MONOCYTES # (AUTO) 0.8 K/uL (0.1-1.0); NEUTROPHILS # (AUTO) 2.5 K/uL (1.8-7.7); NEUTROPHILS % (AUTO) 56.7 % (40.0-70.0); PLATELET COUNT (AUTO) 232 K/uL (150-450); RED BLOOD CELL COUNT(AUTO) 3.24 MIL/uL (4.50-5.90); RED CELL DISTRIBUTION WIDTH 18.3 % (11.5-14.5)
[2019-06-25 07:04] LABS: ALBUMIN 2.9 g/dL (3.4-5.0); BILIRUBIN,TOTAL 0.4 mg/dL (0.1-1.0); CALCIUM, TOTAL 8.9 mg/dL (8.8-10.5); CREATININE 8.41 mg/dL (0.60-1.30); POTASSIUM 5.5 mmol/L (3.5-5.1); TOTAL PROTEIN, SERUM 7.1 g/dL (6.4-8.2)
[2019-06-25 07:57] VITALS: BP 163/84
[2019-06-25] MEDS: CALCIUM ACETATE 667 MG CAPSULE PO SCH ×2 (08:30→12:54)
[2019-06-25] MEDS ORDERED: PARICALCITOL 1 MCG CAPSULE PO SCH ×2 (09:00)
[2019-06-25] MEDS ORDERED: EPOETIN ALFA 10,000 UNITS/ML VIAL SQ SCH (09:00)
[2019-06-25] MEDS: DOCUSATE SODIUM 250 MG CAPSULE PO SCH (09:00)
[2019-06-25] MEDS ORDERED: HYDR-4174 PO (10:58)
[2019-06-25] MEDS ORDERED: HYDR-2924 PO (10:59)
[2019-06-25] MEDS ORDERED: VALS160T2 PO (11:00)
[2019-06-25] MEDS ORDERED: CLON.3 PO (11:01)
[2019-06-25] MEDS ORDERED: [UNRECOGNIZED DRUG - CODE] SQ (11:05)
[2019-06-25 11:16] VITALS: BP 167/89
[2019-06-25] MEDS: ASPIRIN 81 MG EC TABLET PO SCH (12:53)
[2019-06-25] MEDS: VITAMIN B COMP/VIT C/FOLIC ACID CAPSULE PO SCH (12:53)
[2019-06-25] MEDS: AmLODIPine BESYLATE 10 MG TABLET PO SCH (12:54)
[2019-06-25] MEDS: VALSARTAN 160 MG TABLET PO SCH (12:54)
[2019-06-25] MEDS: HydrALAZINE HCL 25 MG TABLET PO SCH ×2 (12:54→13:00)
[2019-06-25] MEDS: FAMOTIDINE 20 MG TABLET PO SCH (12:54)
[2019-06-25] MEDS: HEPARIN SODIUM,PORCINE 5,000 UNITS/ML VIAL SQ SCH (12:55)
[2019-06-25] MEDS: INSULIN LISPRO 100 UNITS/ML SQ PRN (12:59)
[2019-06-25 13:36] LABS: ETHANOL LEVEL Negative % (0.000-0.010)
[2019-06-26 13:01] LABS: GLUCOMETER DEV NAME(LOC) 5S.1; GLUCOSE,POINT OF CARE 217 MG/DL (70-110)
[2019-06-26 13:01] LABS: GLUCOMETER DEV NAME(LOC) 5S.1; GLUCOSE,POINT OF CARE 145 MG/DL (70-110)
== END 2019-06-25 15:00 | disposition home or self-care (01) | DRG 199 ==
LOC: EMS 05:31 → 5S 22:11
PROVIDERS: ADMIT Internal Medicine; ATTEND Internal Medicine
PROC: 5A1D70Z Performance of Urinary Filtration, Intermittent, Less than 6 Hours Per Day (ICD-10-PCS; principal; 2019-06-23)
PROC: 5A1D70Z Performance of Urinary Filtration, Intermittent, Less than 6 Hours Per Day (ICD-10-PCS; 2019-06-25)
DX: I16.0 Hypertensive urgency (principal); G93.41 Metabolic encephalopathy; R64 Cachexia; E46 Unspecified protein-calorie malnutrition; E10.649 Type 1 diabetes mellitus with hypoglycemia without coma; E10.22 Type 1 diabetes mellitus with diabetic chronic kidney disease; D63.8 Anemia in other chronic diseases classified elsewhere; S82.62XA Displaced fracture of lateral malleolus of left fibula, initial encounter for closed fracture; E83.39 Other disorders of phosphorus metabolism; E83.51 Hypocalcemia; E87.5 Hyperkalemia; I13.11 Hypertensive heart and chronic kidney disease without heart failure, with stage 5 chronic kidney disease, or end stage renal disease; N18.6 End stage renal disease; R62.7 Adult failure to thrive; N25.81 Secondary hyperparathyroidism of renal origin; E78.00 Pure hypercholesterolemia, unspecified; F12.90 Cannabis use, unspecified, uncomplicated; D64.9 Anemia, unspecified; Z83.3 Family history of diabetes mellitus; Z82.49 Family history of ischemic heart disease and other diseases of the circulatory system; F17.200 Nicotine dependence, unspecified, uncomplicated; I25.10 Atherosclerotic heart disease of native coronary artery without angina pectoris; E78.5 Hyperlipidemia, unspecified; Z91.11 Patient's noncompliance with dietary regimen; Z91.15 Patient's noncompliance with renal dialysis; Z99.2 Dependence on renal dialysis; W18.39XA Other fall on same level, initial encounter; Y93.89 Activity, other specified; Y92.098 Other place in other non-institutional residence as the place of occurrence of the external cause; Y99.8 Other external cause status; M48.00 Spinal stenosis, site unspecified; M51.36 Other intervertebral disc degeneration, lumbar region; Z91.19 Patient's noncompliance with other medical treatment and regimen; Z68.24 Body mass index [BMI] 24.0-24.9, adult
CPT/HCPCS: 70450; 72131; 72170; 80184; 80185; 80320; 80329; 80337; 80342; 80345; 80346; 82010; 83605; 84550; 84600; 87081; 87340; 93005; 97116; 97162; 97530; G0480; J0360; J0885; J1644; J1815; J1885; J2310; J7030

== ENCOUNTER 2019-07-14 19:00 | Inpatient (IN) | payer OTHER ==
[~2019-07-14] VITALS: Ht 182.9 cm; Wt 70.8 kg
[~2019-07-14 19:00] MED LIST changes: +CLON.3 PO; +DOCU-342 PO; -DOCU250C91 PO; -INSLAN SQ; +VALS160T2 PO; +[UNRECOGNIZED DRUG - CODE] SQ
[2019-07-14] MEDS ORDERED: NALOXONE HCL 1 MG/ML 2 ML SYG IVP ONE (19:45)
[2019-07-14 19:47] LABS: BASOPHILS % (AUTO) 1.1 % (0.0-2.0); EOSINOPHILS % (AUTO) 1.6 % (1.0-6.0); HEMATOCRIT 33.7 % (41-53); HEMOGLOBIN 10.7 g/dL (13.5-17.5); LYMPHOCYTES # (AUTO) 0.7 K/uL (1.0-4.8); LYMPHOCYTES % (AUTO) 12.4 % (22.0-44.0); MEAN CORPUSCULAR HEMOGLOBIN 29.8 pg (26.0-34.0); MEAN CORPUSCULAR HGB CONC 31.8 G/dL (31.0-37.0); MEAN CORPUSCULAR VOLUME 94 fL (80-100); MONOCYTES # (AUTO) 0.4 K/uL (0.1-1.0); MONOCYTES % (AUTO) 8.1 % (2.0-9.0); NEUTROPHILS # (AUTO) 4.1 K/uL (1.8-7.7); NEUTROPHILS % (AUTO) 76.8 % (40.0-70.0); PLATELET COUNT (AUTO) 284 K/uL (150-450); RED BLOOD CELL COUNT(AUTO) 3.59 MIL/uL (4.50-5.90)
[2019-07-14 20:05] LABS: ANION GAP 13 mmol/L (8-16); CALCIUM, TOTAL 8.7 mg/dL (8.8-10.5); CARBON DIOXIDE 29 mmol/L (22-29); CHLORIDE 98 mmol/L (98-107); CREATININE 6.32 mg/dL (0.60-1.30); GLOMERULAR FILTR. RATE CALC 11 mL/min (>60); GLUCOSE,RANDOM 335 mg/dL (70-110); POTASSIUM 5.3 mmol/L (3.5-5.1); SODIUM SERUM 140 mmol/L (136-145); UREA NITROGEN, BLOOD 39 mg/dL (7-18)
[2019-07-14 20:11] LABS: ALANINE AMINOTRANSFERASE 47 U/L (12-78); ALBUMIN 3.3 g/dL (3.4-5.0); ALKALINE PHOSPHATASE 234 U/L (46-116); ASPARTATE AMINOTRANSFERASE 62 U/L (15-37); BILIRUBIN,TOTAL 0.5 mg/dL (0.1-1.0); TOTAL PROTEIN, SERUM 7.8 g/dL (6.4-8.2)
[2019-07-14] MEDS ORDERED: LORazepam 2 MG/ML VIAL IVP ONE (20:15)
[2019-07-14 20:16] LABS: LACTIC ACID 1.2 mmol/L (0.4-2.0)
[2019-07-14 20:50] LABS: GLUCOSE,POINT OF CARE 286 MG/DL (70-110)
[2019-07-14] MEDS ORDERED: ONDANSETRON HCL 4 MG/2 ML VIAL IVP PRN ×2 (21:00→21:45)
[2019-07-14] MEDS ORDERED: ACETAMINOPHEN 325 MG TABLET PO PRN ×2 (21:00→21:45)
[2019-07-14] MEDS ORDERED: 0.9% SODIUM CHLORIDE 10 ML SYRINGE IVP PRN (21:00)
[2019-07-14] MEDS ORDERED: ZOLPIDEM TARTRATE 5 MG TABLET PO PRN (21:45)
[2019-07-14] MEDS ORDERED: MORPHINE SULFATE 2 MG/ML SYRINGE IVP PRN (21:45)
[2019-07-14] MEDS ORDERED: MAGNESIUM HYDROXIDE SUSPENSION 30 ML UDCUP PO PRN (21:45)
[2019-07-14] MEDS ORDERED: BISACODYL 10 MG RECTAL RECTAL SUPPOSITORY PR PRN (21:45)
[2019-07-15] MEDS: HEPARIN SODIUM,PORCINE 5,000 UNITS/ML VIAL SQ SCH ×4 (00:15→23:55)
[2019-07-15 02:36] LABS: GLUCOSE,POINT OF CARE 370 MG/DL (70-110)
[2019-07-15 07:07] LABS: GLUCOSE,POINT OF CARE 335 MG/DL (70-110)
[2019-07-15] MEDS: DOCUSATE SODIUM 100 MG CAPSULE PO SCH ×2 (08:56→20:44)
[2019-07-15] MEDS: PANTOPRAZOLE SODIUM 40 MG DR TABLET PO SCH (08:56)
[2019-07-15] MEDS ORDERED: DEXTROSE 50%-WATER 25 GM/50 ML SYRINGE IVP PRN (09:15)
[2019-07-15] MEDS: INSULIN LISPRO 100 UNITS/ML SQ PRN ×2 (10:02→18:19)
[2019-07-15 10:27] LABS: GLUCOSE,POINT OF CARE 417 MG/DL (70-110)
[2019-07-15 10:45] LABS: GLUCOSE,POINT OF CARE 398 MG/DL (70-110)
[2019-07-15] MEDS ORDERED: INSU100V SQ (11:32)
[2019-07-15] MEDS ORDERED: FOLI0.8T22 PO (11:32)
[2019-07-15] MEDS: AmLODIPine BESYLATE 10 MG TABLET PO SCH (15:44)
[2019-07-15] MEDS: HydrALAZINE HCL 50 MG TABLET PO SCH ×4 (15:45→20:56)
[2019-07-15 17:53] VITALS: BP 172/96
[2019-07-15] MEDS: CALCIUM ACETATE 667 MG CAPSULE PO SCH (17:57)
[2019-07-15 19:51] VITALS: BP 137/63
[2019-07-15] MEDS: INSULIN GLARGINE,HUM.REC.ANLOG 100 UNITS/ML SQ SCH (20:47)
[2019-07-16] VITALS (7 sets, daily range): BP systolic 138–185; BP diastolic 69–97
[2019-07-16] MEDS: HydrALAZINE HCL 50 MG TABLET PO SCH ×5 (05:29→21:18)
[2019-07-16 06:23] LABS: BASOPHILS % (AUTO) 1.8 % (0.0-2.0); EOSINOPHILS % (AUTO) 2.5 % (1.0-6.0); HEMATOCRIT 34.1 % (41-53); HEMOGLOBIN 11.1 g/dL (13.5-17.5); LYMPHOCYTES # (AUTO) 0.7 K/uL (1.0-4.8); LYMPHOCYTES % (AUTO) 12.9 % (22.0-44.0); MEAN CORPUSCULAR HEMOGLOBIN 30.5 pg (26.0-34.0); MEAN CORPUSCULAR HGB CONC 32.7 G/dL (31.0-37.0); MEAN CORPUSCULAR VOLUME 93 fL (80-100); MONOCYTES # (AUTO) 0.5 K/uL (0.1-1.0); MONOCYTES % (AUTO) 8.6 % (2.0-9.0); NEUTROPHILS # (AUTO) 4.2 K/uL (1.8-7.7); NEUTROPHILS % (AUTO) 74.2 % (40.0-70.0); PLATELET COUNT (AUTO) 312 K/uL (150-450); RED BLOOD CELL COUNT(AUTO) 3.65 MIL/uL (4.50-5.90); RED CELL DISTRIBUTION WIDTH 16.9 % (11.5-14.5)
[2019-07-16 06:46] LABS: CALCIUM, TOTAL 8.8 mg/dL (8.8-10.5); CREATININE 8.72 mg/dL (0.60-1.30); POTASSIUM 4.3 mmol/L (3.5-5.1)
[2019-07-16] MEDS: HEPARIN SODIUM,PORCINE 5,000 UNITS/ML VIAL SQ SCH ×4 (09:00→23:48)
[2019-07-16] MEDS: INSULIN GLARGINE,HUM.REC.ANLOG 100 UNITS/ML SQ SCH ×2 (09:01→21:43)
[2019-07-16] MEDS: AmLODIPine BESYLATE 10 MG TABLET PO SCH (09:01)
[2019-07-16] MEDS: PANTOPRAZOLE SODIUM 40 MG DR TABLET PO SCH (09:01)
[2019-07-16] MEDS: CALCIUM ACETATE 667 MG CAPSULE PO SCH ×3 (09:01→21:17)
[2019-07-16] MEDS: PARICALCITOL 1 MCG CAPSULE PO SCH (09:02)
[2019-07-16] MEDS: DOCUSATE SODIUM 100 MG CAPSULE PO SCH ×2 (09:02→21:17)
[2019-07-16] MEDS: ASPIRIN 81 MG EC TABLET PO SCH (09:02)
[2019-07-16] MEDS: INSULIN LISPRO 100 UNITS/ML SQ PRN (13:00)
[2019-07-16 20:46] LABS: GLUCOMETER DEV NAME(LOC) 5N.2; GLUCOSE,POINT OF CARE 191 MG/DL (70-110)
[2019-07-16 20:46] LABS: GLUCOMETER DEV NAME(LOC) 5N.2; GLUCOSE,POINT OF CARE 266 MG/DL (70-110)
[2019-07-16 20:46] LABS: GLUCOMETER DEV NAME(LOC) 5N.2; GLUCOSE,POINT OF CARE 169 MG/DL (70-110)
[2019-07-16 20:46] LABS: GLUCOMETER DEV NAME(LOC) 5N.2; GLUCOSE,POINT OF CARE 139 MG/DL (70-110)
[2019-07-16 20:47] LABS: GLUCOMETER DEV NAME(LOC) 5N.2; GLUCOSE,POINT OF CARE 157 MG/DL (70-110)
[2019-07-16 21:46] LABS: GLUCOMETER DEV NAME(LOC) 5S.1; GLUCOSE,POINT OF CARE 102 MG/DL (70-110)
[2019-07-16] MEDS: HYDROCODONE/ACETAMINOPHEN 5-325 MG TABLET PO PRN (23:51)
[2019-07-17] VITALS (9 sets, daily range): BP systolic 138–195; BP diastolic 61–91
[2019-07-17 06:43] LABS: BASOPHILS % (AUTO) 1.2 % (0.0-2.0); EOSINOPHILS % (AUTO) 2.6 % (1.0-6.0); HEMOGLOBIN 10.9 g/dL (13.5-17.5); LYMPHOCYTES % (AUTO) 20.4 % (22.0-44.0); MEAN CORPUSCULAR HEMOGLOBIN 29.8 pg (26.0-34.0); MEAN CORPUSCULAR VOLUME 93 fL (80-100); MONOCYTES # (AUTO) 0.6 K/uL (0.1-1.0); MONOCYTES % (AUTO) 11.5 % (2.0-9.0); NEUTROPHILS # (AUTO) 3.2 K/uL (1.8-7.7); NEUTROPHILS % (AUTO) 64.3 % (40.0-70.0); PLATELET COUNT (AUTO) 329 K/uL (150-450); RED BLOOD CELL COUNT(AUTO) 3.64 MIL/uL (4.50-5.90); RED CELL DISTRIBUTION WIDTH 16.5 % (11.5-14.5)
[2019-07-17 06:53] LABS: CALCIUM, TOTAL 8.9 mg/dL (8.8-10.5); CREATININE 6.36 mg/dL (0.60-1.30); POTASSIUM 4.4 mmol/L (3.5-5.1)
[2019-07-17] MEDS: HEPARIN SODIUM,PORCINE 5,000 UNITS/ML VIAL SQ SCH ×2 (08:00→16:00)
[2019-07-17] MEDS: DOCUSATE SODIUM 100 MG CAPSULE PO SCH ×2 (08:59→20:20)
[2019-07-17] MEDS: CALCIUM ACETATE 667 MG CAPSULE PO SCH ×3 (08:59→17:33)
[2019-07-17] MEDS: PANTOPRAZOLE SODIUM 40 MG DR TABLET PO SCH (08:59)
[2019-07-17] MEDS: ASPIRIN 81 MG EC TABLET PO SCH (08:59)
[2019-07-17] MEDS: HydrALAZINE HCL 50 MG TABLET PO SCH ×4 (09:00→20:19)
[2019-07-17 09:06] LABS: GLUCOMETER DEV NAME(LOC) 5S.1; GLUCOSE,POINT OF CARE 78 MG/DL (70-110)
[2019-07-17] MEDS: INSULIN GLARGINE,HUM.REC.ANLOG 100 UNITS/ML SQ SCH ×2 (09:10→20:24)
[2019-07-17] MEDS: HYDROCODONE/ACETAMINOPHEN 5-325 MG TABLET PO PRN ×2 (11:10→19:56)
[2019-07-17] MEDS: AmLODIPine BESYLATE 10 MG TABLET PO SCH (12:38)
[2019-07-17 15:51] LABS: GLUCOMETER DEV NAME(LOC) 5N.1; GLUCOSE,POINT OF CARE 157 MG/DL (70-110)
[2019-07-17] MEDS: INSULIN LISPRO 100 UNITS/ML SQ PRN ×2 (17:32→20:23)
[2019-07-17 21:35] LABS: GLUCOMETER DEV NAME(LOC) 6N.1; GLUCOSE,POINT OF CARE 299 MG/DL (70-110)
[2019-07-17 21:35] LABS: GLUCOMETER DEV NAME(LOC) 6N.1; GLUCOSE,POINT OF CARE 316 MG/DL (70-110)
[2019-07-17 21:56] LABS: GLUCOMETER DEV NAME(LOC) 5S.2A; GLUCOSE,POINT OF CARE 141 MG/DL (70-110)
[2019-07-18 00:04] VITALS: BP 143/82
[2019-07-18 04:30] VITALS: BP 145/76
[2019-07-18 06:16] LABS: BASOPHILS % (AUTO) 3.5 % (0.0-2.0); HEMATOCRIT 33.1 % (41-53); HEMOGLOBIN 10.8 g/dL (13.5-17.5); LYMPHOCYTES # (AUTO) 0.9 K/uL (1.0-4.8); LYMPHOCYTES % (AUTO) 19.2 % (22.0-44.0); MEAN CORPUSCULAR HEMOGLOBIN 30.1 pg (26.0-34.0); MEAN CORPUSCULAR HGB CONC 32.5 G/dL (31.0-37.0); MEAN CORPUSCULAR VOLUME 92 fL (80-100); MONOCYTES # (AUTO) 0.7 K/uL (0.1-1.0); MONOCYTES % (AUTO) 13.9 % (2.0-9.0); NEUTROPHILS # (AUTO) 2.8 K/uL (1.8-7.7); NEUTROPHILS % (AUTO) 59.4 % (40.0-70.0); PLATELET COUNT (AUTO) 304 K/uL (150-450); RED BLOOD CELL COUNT(AUTO) 3.58 MIL/uL (4.50-5.90)
[2019-07-18 06:29] LABS: CALCIUM, TOTAL 8.5 mg/dL (8.8-10.5); CREATININE 8.03 mg/dL (0.60-1.30); POTASSIUM 4.9 mmol/L (3.5-5.1)
[2019-07-18] MEDS: HEPARIN SODIUM,PORCINE 5,000 UNITS/ML VIAL SQ SCH ×3 (08:00→14:07)
[2019-07-18] MEDS: CALCIUM ACETATE 667 MG CAPSULE PO SCH ×3 (08:00→17:45)
[2019-07-18 08:10] VITALS: BP 175/95
[2019-07-18] MEDS: HydrALAZINE HCL 50 MG TABLET PO SCH ×3 (08:16→20:57)
[2019-07-18] MEDS: DOCUSATE SODIUM 100 MG CAPSULE PO SCH ×2 (09:00→21:00)
[2019-07-18] MEDS: INSULIN GLARGINE,HUM.REC.ANLOG 100 UNITS/ML SQ SCH (09:00)
[2019-07-18] MEDS: ASPIRIN 81 MG EC TABLET PO SCH (14:08)
[2019-07-18] MEDS: PANTOPRAZOLE SODIUM 40 MG DR TABLET PO SCH (14:08)
[2019-07-18] MEDS: AmLODIPine BESYLATE 10 MG TABLET PO SCH (14:08)
[2019-07-18] MEDS: PARICALCITOL 1 MCG CAPSULE PO SCH (14:09)
[2019-07-18] MEDS: HYDROCODONE/ACETAMINOPHEN 5-325 MG TABLET PO PRN (14:33)
[2019-07-18 15:35] VITALS: BP 152/69
[2019-07-18] MEDS: INSULIN LISPRO 100 UNITS/ML SQ PRN ×2 (17:46→20:57)
[2019-07-18 19:06] LABS: GLUCOMETER DEV NAME(LOC) 6N.1; GLUCOSE,POINT OF CARE 29 MG/DL (70-110)
[2019-07-18 19:06] LABS: GLUCOMETER DEV NAME(LOC) 6N.1; GLUCOSE,POINT OF CARE 216 MG/DL (70-110)
[2019-07-18 19:06] LABS: GLUCOMETER DEV NAME(LOC) 6N.1; GLUCOSE,POINT OF CARE 161 MG/DL (70-110)
[2019-07-18 19:06] LABS: GLUCOMETER DEV NAME(LOC) 6N.1; GLUCOSE,POINT OF CARE 47 MG/DL (70-110)
[2019-07-18 19:06] LABS: GLUCOMETER DEV NAME(LOC) 6N.1; GLUCOSE,POINT OF CARE 122 MG/DL (70-110)
[2019-07-18 19:38] VITALS: BP 136/70
[2019-07-18 21:20] LABS: GLUCOMETER DEV NAME(LOC) 6N.1; GLUCOSE,POINT OF CARE 228 MG/DL (70-110)
[2019-07-19 00:42] VITALS: BP 144/76
[2019-07-19 04:36] VITALS: BP 144/66
[2019-07-19] MEDS: INSULIN LISPRO 100 UNITS/ML SQ PRN ×2 (06:35→12:02)
[2019-07-19 06:45] LABS: GLUCOMETER DEV NAME(LOC) 6N.1; GLUCOSE,POINT OF CARE 202 MG/DL (70-110)
[2019-07-19 07:01] LABS: BASOPHILS % (AUTO) 1.9 % (0.0-2.0); EOSINOPHILS % (AUTO) 4.5 % (1.0-6.0); HEMATOCRIT 33.9 % (41-53); HEMOGLOBIN 10.9 g/dL (13.5-17.5); LYMPHOCYTES # (AUTO) 0.9 K/uL (1.0-4.8); LYMPHOCYTES % (AUTO) 21.9 % (22.0-44.0); MEAN CORPUSCULAR HEMOGLOBIN 30.3 pg (26.0-34.0); MEAN CORPUSCULAR HGB CONC 32.2 G/dL (31.0-37.0); MEAN CORPUSCULAR VOLUME 94 fL (80-100); MONOCYTES # (AUTO) 0.5 K/uL (0.1-1.0); MONOCYTES % (AUTO) 12.7 % (2.0-9.0); NEUTROPHILS # (AUTO) 2.4 K/uL (1.8-7.7); PLATELET COUNT (AUTO) 263 K/uL (150-450); RED CELL DISTRIBUTION WIDTH 16.8 % (11.5-14.5)
[2019-07-19 07:26] LABS: ALBUMIN 2.9 g/dL (3.4-5.0); BILIRUBIN,TOTAL 0.5 mg/dL (0.1-1.0); CALCIUM, TOTAL 9.1 mg/dL (8.8-10.5); CREATININE 6.02 mg/dL (0.60-1.30); POTASSIUM 5.3 mmol/L (3.5-5.1); TOTAL PROTEIN, SERUM 7.2 g/dL (6.4-8.2)
[2019-07-19] MEDS ORDERED: INSULIN GLARGINE,HUM.REC.ANLOG 100 UNITS/ML SQ SCH (08:00)
[2019-07-19] MEDS: HEPARIN SODIUM,PORCINE 5,000 UNITS/ML VIAL SQ SCH ×3 (08:00→08:40)
[2019-07-19] MEDS: HydrALAZINE HCL 50 MG TABLET PO SCH (08:39)
[2019-07-19] MEDS: PANTOPRAZOLE SODIUM 40 MG DR TABLET PO SCH (08:39)
[2019-07-19] MEDS: AmLODIPine BESYLATE 10 MG TABLET PO SCH (08:39)
[2019-07-19] MEDS: DOCUSATE SODIUM 100 MG CAPSULE PO SCH (08:39)
[2019-07-19] MEDS: ASPIRIN 81 MG EC TABLET PO SCH (08:39)
[2019-07-19] MEDS: CALCIUM ACETATE 667 MG CAPSULE PO SCH ×2 (08:39→12:10)
[2019-07-19 08:56] VITALS: BP 185/87
[2019-07-19 11:45] VITALS: BP 134/69
[2019-07-19 13:01] LABS: GLUCOMETER DEV NAME(LOC) 6N.1; GLUCOSE,POINT OF CARE 247 MG/DL (70-110)
[2019-07-19] MEDS ORDERED: INSLAN SQ (14:52)
== END 2019-07-19 15:10 | disposition home or self-care (01) | DRG 194 ==
LOC: EMS 19:02 → 5N 07-15 10:38 → 5S 07-16 17:35 → 6N 07-17 15:05
PROVIDERS: ADMIT Internal Medicine; ATTEND Internal Medicine
PROC: 5A1D70Z Performance of Urinary Filtration, Intermittent, Less than 6 Hours Per Day (ICD-10-PCS; principal; 2019-07-16)
PROC: 5A1D70Z Performance of Urinary Filtration, Intermittent, Less than 6 Hours Per Day (ICD-10-PCS; 2019-07-18)
DX: I13.2 Hypertensive heart and chronic kidney disease with heart failure and with stage 5 chronic kidney disease, or end stage renal disease (principal); G93.41 Metabolic encephalopathy; E46 Unspecified protein-calorie malnutrition; R64 Cachexia; E87.5 Hyperkalemia; E11.65 Type 2 diabetes mellitus with hyperglycemia; E83.51 Hypocalcemia; E83.39 Other disorders of phosphorus metabolism; N18.6 End stage renal disease; Z99.2 Dependence on renal dialysis; N25.81 Secondary hyperparathyroidism of renal origin; D63.8 Anemia in other chronic diseases classified elsewhere; E11.22 Type 2 diabetes mellitus with diabetic chronic kidney disease; E11.649 Type 2 diabetes mellitus with hypoglycemia without coma; E78.00 Pure hypercholesterolemia, unspecified; E87.1 Hypo-osmolality and hyponatremia; F12.90 Cannabis use, unspecified, uncomplicated; I50.9 Heart failure, unspecified; K21.9 Gastro-esophageal reflux disease without esophagitis; R62.7 Adult failure to thrive; Z82.49 Family history of ischemic heart disease and other diseases of the circulatory system; Z83.3 Family history of diabetes mellitus; Z87.891 Personal history of nicotine dependence; Z91.19 Patient's noncompliance with other medical treatment and regimen
CPT/HCPCS: 70450; 82948; 83036; 83605; 87081; 87340; 93005; 96374; 96375; G0378; G0480; J1644; J1815; J2060; J2310

== ENCOUNTER 2020-03-12 06:59 | Inpatient (IN) | payer OTHER ==
[~2020-03-12] VITALS: Ht 172.7 cm; Wt 67.2 kg
[~2020-03-12 06:59] MED LIST changes: -CLON.3 PO; +CLON0.3T PO; +FOLI0.8T22 PO; +INSLAN SQ; -INSU100C3 SQ; +INSU100V SQ; -MULT1TAB11 PO; -VALS160T2 PO
[2020-03-12] MEDS ORDERED: MORPHINE SULFATE 4 MG/ML SYRINGE IVP ONE ×2 (07:15→11:15)
[2020-03-12] MEDS ORDERED: SODIUM CHLORIDE 0.9% 1,000 ML IV ONE (07:15)
[2020-03-12] MEDS ORDERED: ONDANSETRON HCL 4 MG/2 ML VIAL IVP ONE (07:15)
[2020-03-12 07:33] LABS: GLUCOSE,POINT OF CARE > 600 MG/DL (70-110)
[2020-03-12 07:59] LABS: BASOPHILS % (AUTO) 0.4 % (0.0-2.0); EOSINOPHILS % (AUTO) 0 % (1.0-6.0); HEMATOCRIT 37.8 % (41-53); HEMOGLOBIN 10.8 g/dL (13.5-17.5); LYMPHOCYTES # (AUTO) 0.3 K/uL (1.0-4.8); LYMPHOCYTES % (AUTO) 1.8 % (22.0-44.0); MEAN CORPUSCULAR HEMOGLOBIN 30.7 pg (26.0-34.0); MEAN CORPUSCULAR HGB CONC 28.5 G/dL (31.0-37.0); MEAN CORPUSCULAR VOLUME 108 fL (80-100); MONOCYTES # (AUTO) 0.7 K/uL (0.1-1.0); MONOCYTES % (AUTO) 4.1 % (2.0-9.0); PLATELET COUNT (AUTO) 188 K/uL (150-450); RED BLOOD CELL COUNT(AUTO) 3.51 MIL/uL (4.50-5.90); RED CELL DISTRIBUTION WIDTH 18.2 % (11.5-14.5)
[2020-03-12 08:00] LABS: NEUTROPHILS % (AUTO) 93.7 % (40.0-70.0)
[2020-03-12 08:15] LABS: ALANINE AMINOTRANSFERASE 36 U/L (12-78); ALBUMIN 3.5 g/dL (3.4-5.0); ALKALINE PHOSPHATASE 243 U/L (46-116); ANION GAP 33 mmol/L (8-16); ASPARTATE AMINOTRANSFERASE 44 U/L (15-37); BILIRUBIN,TOTAL 0.7 mg/dL (0.1-1.0); CALCIUM, TOTAL 8.1 mg/dL (8.8-10.5); CARBON DIOXIDE 10 mmol/L (22-29); CHLORIDE 74 mmol/L (98-107); CREATININE 9.04 mg/dL (0.60-1.30); GLOMERULAR FILTR. RATE CALC 7 mL/min (>60); LIPASE 28 U/L (73-393); TOTAL PROTEIN, SERUM 7.9 g/dL (6.4-8.2); UREA NITROGEN, BLOOD 69 mg/dL (7-18)
[2020-03-12] MEDS ORDERED: POTASSIUM CHLORIDE 40 MEQ in SODIUM CHLORIDE 0.45% 1,000 ML IV PRN (08:28)
[2020-03-12] MEDS ORDERED: SODIUM CHLORIDE 0.9% 1,000 ML IV SCH (08:28)
[2020-03-12] MEDS ORDERED: DEXTROSE 5%-0.45% SODIUM CHL 1,000 ML IV PRN (08:28)
[2020-03-12] MEDS ORDERED: SODIUM CHLORIDE 0.45% 1,000 ML IV PRN (08:28)
[2020-03-12] MEDS ORDERED: POTASSIUM CHL 20 MEQ/0.45% NS 1,000 ML IV PRN (08:28)
[2020-03-12] MEDS ORDERED: DEXTROSE 50%-WATER 25 GM/50 ML SYRINGE IVP PRN ×2 (08:30→22:30)
[2020-03-12] MEDS ORDERED: INSULIN REGULAR, HUMAN 100 UNITS/ML IVP ONE ×2 (08:30→10:30)
[2020-03-12 08:34] LABS: GLUCOSE,RANDOM 1366 mg/dL (70-110); POTASSIUM 7.2 mmol/L (3.5-5.1); SODIUM SERUM 117 mmol/L (136-145)
[2020-03-12] MEDS ORDERED: ALBUTEROL SULFATE 5 MG/ML 20 ML NEB SOLN [BULK] NEB ONE (08:45)
[2020-03-12] MEDS ORDERED: CALCIUM GLUCONATE 0.465 MEQ/ML 10 ML VIAL IVP ONE (08:45)
[2020-03-12] MEDS ORDERED: 0.9% SODIUM CHLORIDE 5 ML NEB SOLUTION NEB ONE (09:08)
[2020-03-12 09:11] LABS: GLUCOSE,POINT OF CARE > 600 MG/DL (70-110)
[2020-03-12] MEDS: INSULIN REGULAR, HUMAN 100 UNITS in SODIUM CHLORIDE 0.9% 99 ML IV PRN ×4 (09:27→17:24)
[2020-03-12 10:14] LABS: GLUCOSE,POINT OF CARE > 600 MG/DL (70-110)
[2020-03-12 10:47] LABS: GLUCOSE,POINT OF CARE > 600 MG/DL (70-110)
[2020-03-12] MEDS: INSULIN REGULAR, HUMAN 100 UNITS/ML IVP PRN ×8 (11:36→19:35)
[2020-03-12 11:54] LABS: GLUCOSE,POINT OF CARE > 600 MG/DL (70-110)
[2020-03-12 12:41] LABS: GLUCOSE,POINT OF CARE > 600 MG/DL (70-110)
[2020-03-12 12:49] LABS: OSMOLALITY 376 mOS/kg (270-310)
[2020-03-12 13:42] LABS: GLUCOSE,POINT OF CARE > 600 MG/DL (70-110)
[2020-03-12 14:08] LABS: CALCIUM, TOTAL 7.7 mg/dL (8.8-10.5); CREATININE 8.87 mg/dL (0.60-1.30); POTASSIUM 4.7 mmol/L (3.5-5.1)
[2020-03-12 14:43] LABS: ABG A-A DIFF O2 43.7 mmHg (10-20.0); ABG BASE EXCESS -14.7 mmol/L (-2.0-3.0); ABG CARBOXYHEMOGLOBIN 1.1 % (0.0-1.5); ABG HCO3 13.6 mmol/L (22.0-26.0); ABG METHEMOGLOBIN 0.3 % (0.0-1.5); ABG OXYGEN SATURATION 87.6 % (95.0-98.0); ABG OXYHEMOGLOBIN 86.4 % (94.0-100.0); ABG PCO2 37 mmHg (35-45); ABG TOTAL HEMOGLOBIN 10.7 G/dL (12.0-18.0); PO2, ARTERIAL BG 61.6 mmHg (84.0-92.0); SOURCE, BLOOD GAS ARTERIAL; TEMPERATURE, FAHRENHEIT, BG 98.6 FAHREN (96.0-98.6)
[2020-03-12 14:44] LABS: ABG PH 7.183 (7.35-7.450); O2 DEVICE,BLOOD GAS ROOM AIR (ROOM AIR); SITE, BLOOD GAS RT RADIAL
[2020-03-12 15:46] LABS: GLUCOSE,POINT OF CARE > 600 MG/DL (70-110)
[2020-03-12 16:42] LABS: GLUCOSE,POINT OF CARE > 600 MG/DL (70-110)
[2020-03-12 17:43] LABS: CALCIUM, TOTAL 7.9 mg/dL (8.8-10.5); CREATININE 9.29 mg/dL (0.60-1.30); POTASSIUM 5.1 mmol/L (3.5-5.1)
[2020-03-12 17:46] LABS: GLUCOSE,POINT OF CARE > 600 MG/DL (70-110)
[2020-03-12 18:43] LABS: GLUCOSE,POINT OF CARE 489 MG/DL (70-110)
[2020-03-12 19:45] LABS: GLUCOSE,POINT OF CARE 426 MG/DL (70-110)
[2020-03-12 20:53] LABS: GLUCOSE,POINT OF CARE 343 MG/DL (70-110)
[2020-03-12] MEDS: DOCUSATE SODIUM 100 MG CAPSULE PO SCH (21:00)
[2020-03-12 21:48] LABS: CREATININE 5.66 mg/dL (0.60-1.30); POTASSIUM 3.8 mmol/L (3.5-5.1)
[2020-03-12] MEDS ORDERED: MORPHINE SULFATE 4 MG/ML SYRINGE IVP PRN (22:15)
[2020-03-12] MEDS: HEPARIN SODIUM,PORCINE 5,000 UNITS/ML VIAL SQ SCH (22:37)
[2020-03-12] MEDS: INSULIN LISPRO 100 UNITS/ML SQ PRN (22:45)
[2020-03-12 22:57] LABS: GLUCOMETER DEV NAME(LOC) 4E.2; GLUCOSE,POINT OF CARE 273 MG/DL (70-110)
[2020-03-13] MEDS: HydrALAZINE HCL 25 MG TABLET PO PRN ×4 (00:36→20:39)
[2020-03-13] MEDS ORDERED: LORazepam 2 MG/ML VIAL IVP PRN ×2 (01:30→01:45)
[2020-03-13 04:00] VITALS: BP 165/72
[2020-03-13 06:42] LABS: BASOPHILS % (AUTO) 0.3 % (0.0-2.0); EOSINOPHILS % (AUTO) 0.3 % (1.0-6.0); HEMOGLOBIN 10.9 g/dL (13.5-17.5); LYMPHOCYTES # (AUTO) 0.8 K/uL (1.0-4.8); LYMPHOCYTES % (AUTO) 5.4 % (22.0-44.0); MEAN CORPUSCULAR HGB CONC 33.1 G/dL (31.0-37.0); MEAN CORPUSCULAR VOLUME 91 fL (80-100); MONOCYTES # (AUTO) 1.2 K/uL (0.1-1.0); MONOCYTES % (AUTO) 8.2 % (2.0-9.0); NEUTROPHILS # (AUTO) 12.7 K/uL (1.8-7.7); PLATELET COUNT (AUTO) 183 K/uL (150-450); RED BLOOD CELL COUNT(AUTO) 3.64 MIL/uL (4.50-5.90); RED CELL DISTRIBUTION WIDTH 16.3 % (11.5-14.5)
[2020-03-13 07:09] LABS: BILIRUBIN,TOTAL 0.5 mg/dL (0.1-1.0); CREATININE 6.22 mg/dL (0.60-1.30); POTASSIUM 4.5 mmol/L (3.5-5.1); TOTAL PROTEIN, SERUM 7.3 g/dL (6.4-8.2)
[2020-03-13] MEDS: INSULIN LISPRO 100 UNITS/ML SQ PRN ×4 (07:13→21:43)
[2020-03-13 07:14] LABS: NEUTROPHILS % (AUTO) 85.8 % (40.0-70.0)
[2020-03-13 08:00] VITALS: BP 181/83
[2020-03-13] MEDS ORDERED: DEXTROSE 50%-WATER 25 GM/50 ML SYRINGE IVP PRN (09:00)
[2020-03-13] MEDS ORDERED: CloNIDine HCL 0.1 MG TABLET PO PRN (09:00)
[2020-03-13] MEDS: DOCUSATE SODIUM 100 MG CAPSULE PO SCH ×2 (09:00→20:39)
[2020-03-13] MEDS: HEPARIN SODIUM,PORCINE 5,000 UNITS/ML VIAL SQ SCH ×2 (11:14→20:41)
[2020-03-13] MEDS: AmLODIPine BESYLATE 10 MG TABLET PO SCH (11:14)
[2020-03-13] MEDS: ASPIRIN 81 MG CHEWABLE TABLET PO SCH (11:14)
[2020-03-13] MEDS: FAMOTIDINE 20 MG TABLET PO SCH (11:14)
[2020-03-13 11:39] LABS: GLUCOMETER DEV NAME(LOC) 4E.2; GLUCOSE,POINT OF CARE 123 MG/DL (70-110)
[2020-03-13 12:00] VITALS: BP 165/76
[2020-03-13 12:15] LABS: GLUCOSE,POINT OF CARE 109 MG/DL (70-110)
[2020-03-13 12:19] LABS: GLUCOSE,POINT OF CARE 180 MG/DL (70-110)
[2020-03-13] MEDS: ONDANSETRON HCL 4 MG/2 ML VIAL IVP PRN (15:15)
[2020-03-13] MEDS: ACETAMINOPHEN 325 MG TABLET PO PRN (15:24)
[2020-03-13] MEDS: MORPHINE SULFATE 2 MG/ML SYRINGE IVP PRN ×2 (15:25→20:41)
[2020-03-13 16:43] VITALS: BP 146/71
[2020-03-13 19:52] VITALS: BP 161/84
[2020-03-13 22:22] LABS: GLUCOMETER DEV NAME(LOC) 5S.1; GLUCOSE,POINT OF CARE 225 MG/DL (70-110)
[2020-03-13 23:52] VITALS: BP 149/71
[2020-03-14] VITALS (7 sets, daily range): BP systolic 143–182; BP diastolic 71–97
[2020-03-14] MEDS: HydrALAZINE HCL 25 MG TABLET PO PRN (04:30)
[2020-03-14] MEDS: MORPHINE SULFATE 2 MG/ML SYRINGE IVP PRN ×3 (04:31→21:03)
[2020-03-14 05:30] LABS: GLUCOMETER DEV NAME(LOC) 5S.2A; GLUCOSE,POINT OF CARE 273 MG/DL (70-110)
[2020-03-14] MEDS: FAMOTIDINE 20 MG TABLET PO SCH (06:29)
[2020-03-14] MEDS: INSULIN LISPRO 100 UNITS/ML SQ PRN ×3 (06:34→21:07)
[2020-03-14] MEDS: ONDANSETRON HCL 4 MG/2 ML VIAL IVP PRN (06:52)
[2020-03-14] MEDS: DOCUSATE SODIUM 100 MG CAPSULE PO SCH ×2 (08:13→21:02)
[2020-03-14] MEDS: AmLODIPine BESYLATE 10 MG TABLET PO SCH (08:13)
[2020-03-14] MEDS: HEPARIN SODIUM,PORCINE 5,000 UNITS/ML VIAL SQ SCH ×2 (08:13→21:00)
[2020-03-14] MEDS: ASPIRIN 81 MG CHEWABLE TABLET PO SCH (08:13)
[2020-03-14 11:46] LABS: GLUCOMETER DEV NAME(LOC) 5S.1; GLUCOSE,POINT OF CARE 359 MG/DL (70-110)
[2020-03-14 11:46] LABS: GLUCOMETER DEV NAME(LOC) 5S.1; GLUCOSE,POINT OF CARE 224 MG/DL (70-110)
[2020-03-14] MEDS: ACETAMINOPHEN 325 MG TABLET PO PRN (21:02)
[2020-03-15] VITALS: BP 149/89
[2020-03-15 05:32] VITALS: BP 156/68
[2020-03-15] MEDS: MORPHINE SULFATE 2 MG/ML SYRINGE IVP PRN ×2 (05:36→10:12)
[2020-03-15] MEDS: INSULIN LISPRO 100 UNITS/ML SQ PRN ×2 (05:41→12:23)
[2020-03-15] MEDS: ASPIRIN 81 MG CHEWABLE TABLET PO SCH (08:50)
[2020-03-15] MEDS: HEPARIN SODIUM,PORCINE 5,000 UNITS/ML VIAL SQ SCH (08:51)
[2020-03-15] MEDS: AmLODIPine BESYLATE 10 MG TABLET PO SCH (08:51)
[2020-03-15] MEDS: DOCUSATE SODIUM 100 MG CAPSULE PO SCH (08:51)
[2020-03-15] MEDS: FAMOTIDINE 20 MG TABLET PO SCH (08:51)
[2020-03-15 08:53] VITALS: BP 162/96
[2020-03-15] MEDS ORDERED: CloNIDine HCL 0.1 MG TABLET PO SCH (10:00)
[2020-03-15 12:12] LABS: GLUCOMETER DEV NAME(LOC) 5S.1; GLUCOSE,POINT OF CARE 370 MG/DL (70-110)
[2020-03-15 13:03] VITALS: BP 148/93
[2020-03-15 17:09] LABS: GLUCOMETER DEV NAME(LOC) 5N.1; GLUCOSE,POINT OF CARE 381 MG/DL (70-110)
[2020-03-15] MEDS ORDERED: GlipiZIDE 5 MG TABLET PO SCH (17:30)
[2020-03-15 20:33] LABS: GLUCOMETER DEV NAME(LOC) 5S.2A; GLUCOSE,POINT OF CARE 311 MG/DL (70-110)
== END 2020-03-15 17:00 | disposition home or self-care (01) | DRG 420 ==
LOC: EMS 06:59 → ICU 19:30 → 5S 03-13 14:50
PROVIDERS: ADMIT Internal Medicine; ATTEND Internal Medicine
PROC: 5A1D70Z Performance of Urinary Filtration, Intermittent, Less than 6 Hours Per Day (ICD-10-PCS; principal; 2020-03-12)
PROC: 5A1D70Z Performance of Urinary Filtration, Intermittent, Less than 6 Hours Per Day (ICD-10-PCS; 2020-03-13)
DX: E11.10 Type 2 diabetes mellitus with ketoacidosis without coma (principal); G93.41 Metabolic encephalopathy; I13.2 Hypertensive heart and chronic kidney disease with heart failure and with stage 5 chronic kidney disease, or end stage renal disease; R65.10 Systemic inflammatory response syndrome (SIRS) of non-infectious origin without acute organ dysfunction; E44.0 Moderate protein-calorie malnutrition; R64 Cachexia; E83.39 Other disorders of phosphorus metabolism; E83.51 Hypocalcemia; I50.9 Heart failure, unspecified; E87.2 Acidosis; E11.22 Type 2 diabetes mellitus with diabetic chronic kidney disease; N18.6 End stage renal disease; E87.5 Hyperkalemia; E87.1 Hypo-osmolality and hyponatremia; D63.8 Anemia in other chronic diseases classified elsewhere; N25.81 Secondary hyperparathyroidism of renal origin; R62.7 Adult failure to thrive; Z68.22 Body mass index [BMI] 22.0-22.9, adult; Z91.19 Patient's noncompliance with other medical treatment and regimen; E78.00 Pure hypercholesterolemia, unspecified; Z83.3 Family history of diabetes mellitus; Z82.49 Family history of ischemic heart disease and other diseases of the circulatory system; F17.210 Nicotine dependence, cigarettes, uncomplicated; Z72.89 Other problems related to lifestyle; F12.90 Cannabis use, unspecified, uncomplicated; Z88.8 Allergy status to other drugs, medicaments and biological substances; Z99.2 Dependence on renal dialysis; G89.4 Chronic pain syndrome; Z79.4 Long term (current) use of insulin; E11.65 Type 2 diabetes mellitus with hyperglycemia; Z03.818 Encounter for observation for suspected exposure to other biological agents ruled out; J44.1 Chronic obstructive pulmonary disease with (acute) exacerbation; K21.9 Gastro-esophageal reflux disease without esophagitis; J98.11 Atelectasis
CPT/HCPCS: 36600; 70450; 82805; 82948; 83930; 87081; 87340; 93005; 94644; 97161; 99291; G0378; J0610; J1644; J1815; J2060; J2270; J2405; J3480; J7030; J7050

== ENCOUNTER 2020-03-30 23:48 | Inpatient (IN) | payer OTHER ==
[~2020-03-30] VITALS: Ht 172.7 cm; Wt 78.4 kg
[~2020-03-30 23:48] MED LIST changes: -[UNRECOGNIZED DRUG - CODE] SQ
[2020-03-31] MEDS ORDERED: DEXTROSE 50%-WATER 25 GM/50 ML SYRINGE IVP ONE ×2 (00:15→00:30)
[2020-03-31] MEDS ORDERED: LABETALOL HCL 5 MG/ML 20 ML VIAL IVP ONE (00:15)
[2020-03-31] MEDS ORDERED: MIDAZOLAM HCL 2 MG/2 ML VIAL IM ONE (00:15)
[2020-03-31] MEDS ORDERED: MIDAZOLAM HCL 2 MG/2 ML VIAL IVP ONE (00:15)
[2020-03-31 00:27] LABS: BASOPHILS % (AUTO) 2.1 % (0.0-2.0); EOSINOPHILS % (AUTO) 2.8 % (1.0-6.0); HEMATOCRIT 32.7 % (41-53); HEMOGLOBIN 10.5 g/dL (13.5-17.5); LYMPHOCYTES # (AUTO) 1.3 K/uL (1.0-4.8); LYMPHOCYTES % (AUTO) 18.4 % (22.0-44.0); MEAN CORPUSCULAR HEMOGLOBIN 30.6 pg (26.0-34.0); MEAN CORPUSCULAR HGB CONC 32.2 G/dL (31.0-37.0); MEAN CORPUSCULAR VOLUME 95 fL (80-100); MONOCYTES # (AUTO) 0.8 K/uL (0.1-1.0); MONOCYTES % (AUTO) 11.7 % (2.0-9.0); NEUTROPHILS # (AUTO) 4.7 K/uL (1.8-7.7); PLATELET COUNT (AUTO) 267 K/uL (150-450); RED BLOOD CELL COUNT(AUTO) 3.45 MIL/uL (4.50-5.90); RED CELL DISTRIBUTION WIDTH 17.8 % (11.5-14.5)
[2020-03-31 00:29] LABS: CALCIUM, TOTAL 8.2 mg/dL (8.8-10.5); CREATININE 8.01 mg/dL (0.60-1.30); POTASSIUM 3.6 mmol/L (3.5-5.1)
[2020-03-31 00:32] LABS: GLUCOSE,POINT OF CARE 102 MG/DL (70-110)
[2020-03-31 00:48] LABS: PROTHROMBIN TIME 10.3 SEC (9.4-11.6)
[2020-03-31 00:53] LABS: ALBUMIN 3.2 g/dL (3.4-5.0); BILIRUBIN,TOTAL 0.4 mg/dL (0.1-1.0); TOTAL PROTEIN, SERUM 7.7 g/dL (6.4-8.2)
[2020-03-31 03:24] LABS: GLUCOSE,POINT OF CARE 105 MG/DL (70-110)
[2020-03-31] MEDS ORDERED: ACETAMINOPHEN 325 MG TABLET PO PRN ×2 (05:15→08:00)
[2020-03-31] MEDS ORDERED: 0.9% SODIUM CHLORIDE 10 ML SYRINGE IVP PRN (05:15)
[2020-03-31] MEDS ORDERED: ONDANSETRON HCL 4 MG/2 ML VIAL IVP PRN (05:15)
[2020-03-31] MEDS ORDERED: AmLODIPine BESYLATE 5 MG TABLET PO ONE (05:15)
[2020-03-31] MEDS ORDERED: HydrALAZINE HCL 10 MG TABLET PO ONE (05:30)
[2020-03-31] MEDS ORDERED: ACETAMINOPHEN 325 MG TABLET PO ONE (06:00)
[2020-03-31] MEDS ORDERED: DEXTROSE 50%-WATER 25 GM/50 ML SYRINGE IVP PRN (08:00)
[2020-03-31] MEDS ORDERED: INSULIN LISPRO 100 UNITS/ML SQ PRN (08:00)
[2020-03-31 08:41] VITALS: BP 197/78
[2020-03-31] MEDS ORDERED: FAMOTIDINE 20 MG TABLET PO SCH (09:00)
[2020-03-31] MEDS ORDERED: DOCUSATE SODIUM 100 MG CAPSULE PO SCH (09:00)
[2020-03-31] MEDS ORDERED: EPOETIN ALFA 10,000 UNITS/ML VIAL SQ SCH (09:00)
[2020-03-31] MEDS ORDERED: AmLODIPine BESYLATE 10 MG TABLET PO SCH (09:00)
[2020-03-31] MEDS ORDERED: ATORVASTATIN CALCIUM 20 MG TABLET PO SCH (09:00)
[2020-03-31] MEDS ORDERED: CALCITRIOL 0.25 MCG CAPSULE PO SCH (09:00)
[2020-03-31] MEDS ORDERED: ASPIRIN 81 MG CHEWABLE TABLET PO SCH (09:00)
[2020-03-31] MEDS ORDERED: HEPARIN SODIUM,PORCINE 5,000 UNITS/ML VIAL SQ SCH (09:00)
[2020-03-31] MEDS ORDERED: HYDROCODONE/ACETAMINOPHEN 5-325 MG TABLET PO PRN (09:30)
[2020-03-31 11:48] VITALS: BP 155/79
[2020-03-31 13:06] LABS: GLUCOMETER DEV NAME(LOC) 5S.1; GLUCOSE,POINT OF CARE 265 MG/DL (70-110)
[2020-03-31 13:09] LABS: GLUCOSE,POINT OF CARE 173 MG/DL (70-110)
== END 2020-03-31 15:00 | disposition left against medical advice (07) | DRG 420 ==
LOC: EMS 23:48 → 5S 03-31 05:14
PROVIDERS: ADMIT Internal Medicine; ATTEND Internal Medicine
DX: E11.649 Type 2 diabetes mellitus with hypoglycemia without coma (principal); I13.2 Hypertensive heart and chronic kidney disease with heart failure and with stage 5 chronic kidney disease, or end stage renal disease; R64 Cachexia; E46 Unspecified protein-calorie malnutrition; E11.22 Type 2 diabetes mellitus with diabetic chronic kidney disease; E11.65 Type 2 diabetes mellitus with hyperglycemia; N18.6 End stage renal disease; I50.9 Heart failure, unspecified; Z79.4 Long term (current) use of insulin; Z91.19 Patient's noncompliance with other medical treatment and regimen; Z99.2 Dependence on renal dialysis; Z83.3 Family history of diabetes mellitus; F12.90 Cannabis use, unspecified, uncomplicated; F17.210 Nicotine dependence, cigarettes, uncomplicated; E78.00 Pure hypercholesterolemia, unspecified; N25.81 Secondary hyperparathyroidism of renal origin; E83.51 Hypocalcemia; E83.39 Other disorders of phosphorus metabolism; R62.7 Adult failure to thrive; Z68.26 Body mass index [BMI] 26.0-26.9, adult; D63.8 Anemia in other chronic diseases classified elsewhere; E87.1 Hypo-osmolality and hyponatremia; G89.4 Chronic pain syndrome; G47.00 Insomnia, unspecified; F41.9 Anxiety disorder, unspecified; K21.9 Gastro-esophageal reflux disease without esophagitis; Z88.8 Allergy status to other drugs, medicaments and biological substances; I25.10 Atherosclerotic heart disease of native coronary artery without angina pectoris; Z91.15 Patient's noncompliance with renal dialysis; Z79.899 Other long term (current) drug therapy
CPT/HCPCS: 51702; 70450; 83605; 87040; 93005; J0885; J1644; J3490

== ENCOUNTER 2020-09-01 05:13 | Emergency (ER) | payer OTHER ==
[~2020-09-01] VITALS: Ht 170.2 cm; Wt 68.2 kg
[~2020-09-01 05:13] MED LIST changes: +AMLO-258 PO; -AMLO10TA7 PO; -DOCU-342 PO; +DOCU-350 PO
[2020-09-01 06:53] LABS: BASOPHILS % (AUTO) 0.8 % (0.0-2.0); EOSINOPHILS % (AUTO) 0.4 % (1.0-6.0); HEMATOCRIT 33.9 % (41-53); HEMOGLOBIN 11.5 g/dL (13.5-17.5); LYMPHOCYTES # (AUTO) 0.6 K/uL (1.0-4.8); LYMPHOCYTES % (AUTO) 5.1 % (22.0-44.0); MEAN CORPUSCULAR HEMOGLOBIN 32.2 pg (26.0-34.0); MEAN CORPUSCULAR VOLUME 95 fL (80-100); MONOCYTES # (AUTO) 0.6 K/uL (0.1-1.0); MONOCYTES % (AUTO) 4.6 % (2.0-9.0); NEUTROPHILS # (AUTO) 10.7 K/uL (1.8-7.7); PLATELET COUNT (AUTO) 165 K/uL (150-450); RED BLOOD CELL COUNT(AUTO) 3.58 MIL/uL (4.50-5.90); RED CELL DISTRIBUTION WIDTH 15.7 % (11.5-14.5)
[2020-09-01 06:54] LABS: NEUTROPHILS % (AUTO) 89.1 % (40.0-70.0)
[2020-09-01] MEDS ORDERED: ONDANSETRON HCL 4 MG/2 ML VIAL IVP ONE (07:00)
[2020-09-01 07:03] LABS: CARBON DIOXIDE 29 mmol/L (22-29); CHLORIDE 91 mmol/L (98-107); CREATININE 8.39 mg/dL (0.60-1.30); GLOMERULAR FILTR. RATE CALC 8 mL/min (>60); GLUCOSE,RANDOM 162 mg/dL (70-110); UREA NITROGEN, BLOOD 46 mg/dL (7-18)
[2020-09-01 07:09] LABS: ANION GAP 16 mmol/L (8-16); POTASSIUM 4.4 mmol/L (3.5-5.1); SODIUM SERUM 136 mmol/L (136-145)
[2020-09-01 07:21] LABS: ALANINE AMINOTRANSFERASE 50 U/L (12-78); ALBUMIN 3.2 g/dL (3.4-5.0); ALKALINE PHOSPHATASE 184 U/L (46-116); ASPARTATE AMINOTRANSFERASE 67 U/L (15-37); BILIRUBIN,TOTAL 0.5 mg/dL (0.1-1.0); FREE T4 (FREE THYROXINE) 1.24 ng/dL (0.76-1.46); TOTAL PROTEIN, SERUM 7.6 g/dL (6.4-8.2)
[2020-09-01 09:12] VITALS: BP 182/95
== END 2020-09-01 10:12 | disposition home or self-care (01) ==
LOC: EMS 05:16
DX: I13.11 Hypertensive heart and chronic kidney disease without heart failure, with stage 5 chronic kidney disease, or end stage renal disease (principal); E11.22 Type 2 diabetes mellitus with diabetic chronic kidney disease; F17.210 Nicotine dependence, cigarettes, uncomplicated; F12.90 Cannabis use, unspecified, uncomplicated; T38.3X5A Adverse effect of insulin and oral hypoglycemic [antidiabetic] drugs, initial encounter; Z91.018 Allergy to other foods; Y92.89 Other specified places as the place of occurrence of the external cause; Z79.899 Other long term (current) drug therapy
CPT/HCPCS: 36415; 71045; 80053; 82962; 84439; 84443; 84484; 85025; 93005; 96374; 99285; 99406; G0480; J2405

== ENCOUNTER 2022-03-26 00:37 | Inpatient (IN) | payer OTHER ==
[~2022-03-26] VITALS: Ht 170.2 cm; Wt 73.3 kg
[~2022-03-26 00:37] MED LIST changes: -HYDR-2924 PO; +HYDR50TA36 PO; -OMEP40CA12 PO; +OMEP40CA21 PO
[2022-03-26] MEDS ORDERED: DEXTROSE 50%-WATER 25 GM/50 ML SYRINGE IVP ONE ×3 (00:45→04:30)
[2022-03-26 01:13] LABS: BASOPHILS % (AUTO) 2.8 % (0.0-2.0); EOSINOPHILS % (AUTO) 5.2 % (1.0-6.0); HEMOGLOBIN 11.9 g/dL (13.5-17.5); LYMPHOCYTES # (AUTO) 1.4 K/uL (1.0-4.8); LYMPHOCYTES % (AUTO) 13.9 % (22.0-44.0); MEAN CORPUSCULAR HEMOGLOBIN 28.3 pg (26.0-34.0); MEAN CORPUSCULAR HGB CONC 33.1 G/dL (31.0-37.0); MEAN CORPUSCULAR VOLUME 86 fL (80-100); MONOCYTES # (AUTO) 1.1 K/uL (0.1-1.0); MONOCYTES % (AUTO) 10.9 % (2.0-9.0); NEUTROPHILS # (AUTO) 6.7 K/uL (1.8-7.7); NEUTROPHILS % (AUTO) 67.2 % (40.0-70.0); PLATELET COUNT (AUTO) 203 K/uL (150-450); RED BLOOD CELL COUNT(AUTO) 4.21 MIL/uL (4.50-5.90); RED CELL DISTRIBUTION WIDTH 16.5 % (11.5-14.5)
[2022-03-26 01:33] LABS: ALBUMIN 3.1 g/dL (3.4-5.0); BILIRUBIN,TOTAL 0.6 mg/dL (0.1-1.0); CALCIUM, TOTAL 8.5 mg/dL (8.8-10.5); CREATININE 6.11 mg/dL (0.60-1.30); POTASSIUM 4.4 mmol/L (3.5-5.1); TOTAL PROTEIN, SERUM 8.5 g/dL (6.4-8.2)
[2022-03-26 01:43] LABS: PROTHROMBIN TIME 10.7 SEC (9.4-11.6)
[2022-03-26 01:55] LABS: COVID AG,FIA SOURCE NASAL SWAB
[2022-03-26] MEDS ORDERED: HydrALAZINE HCL 20 MG/ML VIAL IVP ONE (02:00)
[2022-03-26] MEDS ORDERED: DEXTROSE 5%-WATER 1,000 ML IV ONE (02:00)
[2022-03-26 02:16] LABS: GLUCOMETER DEV NAME(LOC) ERT.5; GLUCOSE,POINT OF CARE 68 MG/DL (70-110)
[2022-03-26 02:46] LABS: GLUCOMETER DEV NAME(LOC) ERT.5; GLUCOSE,POINT OF CARE 113 MG/DL (70-110)
[2022-03-26 03:11] LABS: GLUCOMETER DEV NAME(LOC) ERT.5; GLUCOSE,POINT OF CARE 97 MG/DL (70-110)
[2022-03-26] MEDS: NiCARDipine HCL 25 MG in SODIUM CHLORIDE 0.9% 240 ML IV PRN ×2 (03:12→10:31)
[2022-03-26] MEDS ORDERED: LORazepam 2 MG/ML VIAL IVP ONE (04:30)
[2022-03-26] MEDS ORDERED: DEXTROSE 10%-WATER 500 ML IV ONE (04:30)
[2022-03-26 04:31] LABS: GLUCOMETER DEV NAME(LOC) ERT.5; GLUCOSE,POINT OF CARE 55 MG/DL (70-110)
[2022-03-26 06:51] LABS: GLUCOMETER DEV NAME(LOC) ERT.5; GLUCOSE,POINT OF CARE 92 MG/DL (70-110)
[2022-03-26 08:57] LABS: GLUCOMETER DEV NAME(LOC) ERT.5; GLUCOSE,POINT OF CARE 137 MG/DL (70-110)
[2022-03-26] MEDS ORDERED: ONDANSETRON HCL 4 MG/2 ML VIAL IVP PRN (09:15)
[2022-03-26] MEDS ORDERED: BISACODYL 10 MG RECTAL RECTAL SUPPOSITORY PR PRN (09:15)
[2022-03-26] MEDS ORDERED: DEXTROSE 50%-WATER 25 GM/50 ML SYRINGE IVP PRN (09:15)
[2022-03-26] MEDS ORDERED: MAGNESIUM HYDROXIDE SUSPENSION 30 ML UDCUP PO PRN (09:15)
[2022-03-26] MEDS ORDERED: ZOLPIDEM TARTRATE 5 MG TABLET PO PRN (09:15)
[2022-03-26] MEDS ORDERED: HYDROCODONE/ACETAMINOPHEN 5-325 MG TABLET PO PRN (09:15)
[2022-03-26] MEDS ORDERED: ACETAMINOPHEN 325 MG TABLET PO PRN (09:15)
[2022-03-26 10:25] LABS: GLUCOMETER DEV NAME(LOC) ERT.5; GLUCOSE,POINT OF CARE 169 MG/DL (70-110)
[2022-03-26] MEDS: MORPHINE SULFATE 2 MG/ML SYRINGE IVP PRN ×2 (11:23→15:39)
[2022-03-26 11:56] LABS: GLUCOMETER DEV NAME(LOC) ERT.5; GLUCOSE,POINT OF CARE 232 MG/DL (70-110)
[2022-03-26] MEDS: HydrALAZINE HCL 50 MG TABLET PO SCH ×3 (12:23→21:46)
[2022-03-26] MEDS: HydrALAZINE HCL 20 MG/ML VIAL IVP PRN (13:14)
[2022-03-26 13:26] LABS: GLUCOMETER DEV NAME(LOC) ERT.5; GLUCOSE,POINT OF CARE 255 MG/DL (70-110)
[2022-03-26] MEDS: HEPARIN SODIUM,PORCINE 5,000 UNITS/ML VIAL SQ SCH (15:38)
[2022-03-26 16:56] LABS: GLUCOMETER DEV NAME(LOC) ERT.5; GLUCOSE,POINT OF CARE 298 MG/DL (70-110)
[2022-03-26 18:56] LABS: GLUCOMETER DEV NAME(LOC) ERT.5; GLUCOSE,POINT OF CARE 263 MG/DL (70-110)
[2022-03-26 20:00] VITALS: BP 160/84
[2022-03-26] MEDS: DOCUSATE SODIUM 100 MG CAPSULE PO SCH (21:44)
[2022-03-27] VITALS (17 sets, daily range): BP systolic 148–181; BP diastolic 71–88
[2022-03-27] MEDS: HydrALAZINE HCL 20 MG/ML VIAL IVP PRN ×2 (00:44→23:58)
[2022-03-27] MEDS: HEPARIN SODIUM,PORCINE 5,000 UNITS/ML VIAL SQ SCH ×3 (00:44→16:32)
[2022-03-27] MEDS: MORPHINE SULFATE 2 MG/ML SYRINGE IVP PRN ×4 (01:24→21:00)
[2022-03-27] MEDS ORDERED: INSULIN LISPRO 100 UNITS/ML SQ PRN (01:45)
[2022-03-27] MEDS ORDERED: GLUCAGON,HUMAN RECOMBINANT 1 MG VIAL IM PRN (01:45)
[2022-03-27] MEDS ORDERED: DEXTROSE 50%-WATER 25 GM/50 ML SYG IVP PRN (02:00)
[2022-03-27] MEDS: INSULIN LISPRO 100 UNITS/ML SQ PRN ×4 (02:13→22:13)
[2022-03-27 05:05] LABS: BASOPHILS % (AUTO) 1.1 % (0.0-2.0); EOSINOPHILS % (AUTO) 2.6 % (1.0-6.0); HEMATOCRIT 33.8 % (41-53); HEMOGLOBIN 11.2 g/dL (13.5-17.5); LYMPHOCYTES # (AUTO) 1.2 K/uL (1.0-4.8); LYMPHOCYTES % (AUTO) 16.1 % (22.0-44.0); MEAN CORPUSCULAR HEMOGLOBIN 28.3 pg (26.0-34.0); MEAN CORPUSCULAR HGB CONC 33.2 G/dL (31.0-37.0); MEAN CORPUSCULAR VOLUME 85 fL (80-100); MONOCYTES # (AUTO) 0.6 K/uL (0.1-1.0); MONOCYTES % (AUTO) 7.9 % (2.0-9.0); NEUTROPHILS # (AUTO) 5.5 K/uL (1.8-7.7); NEUTROPHILS % (AUTO) 72.3 % (40.0-70.0); PLATELET COUNT (AUTO) 164 K/uL (150-450); RED BLOOD CELL COUNT(AUTO) 3.97 MIL/uL (4.50-5.90); RED CELL DISTRIBUTION WIDTH 16.7 % (11.5-14.5)
[2022-03-27 05:11] LABS: CALCIUM, TOTAL 7.8 mg/dL (8.8-10.5); CREATININE 7.67 mg/dL (0.60-1.30)
[2022-03-27] MEDS ORDERED: INSULIN REGULAR, HUMAN 100 UNITS/ML SQ ONE (06:00)
[2022-03-27] MEDS ORDERED: ALBUTEROL SULFATE 2.5 MG/0.5 ML NEB SOLUTION NEB ONE (06:00)
[2022-03-27] MEDS ORDERED: DEXTROSE 50%-WATER 25 GM/50 ML SYRINGE IVP ONE (06:00)
[2022-03-27 06:01] LABS: GLUCOSE,POINT OF CARE 346 MG/DL (70-110)
[2022-03-27] MEDS: DOCUSATE SODIUM 100 MG CAPSULE PO SCH ×2 (09:47→21:00)
[2022-03-27] MEDS: PANTOPRAZOLE SODIUM 40 MG DR TABLET PO SCH (09:47)
[2022-03-27] MEDS: ASPIRIN 81 MG DR TABLET PO SCH (09:48)
[2022-03-27] MEDS: HydrALAZINE HCL 50 MG TABLET PO SCH ×4 (09:48→20:59)
[2022-03-27] MEDS: AmLODIPine BESYLATE 10 MG TABLET PO SCH (09:49)
[2022-03-27] MEDS: ETHYL ALCOHOL 62% ANTISEPTIC NASAL SANITIZER 0.6 ML AMPUL NASAL SCH ×2 (09:49→20:59)
[2022-03-27] MEDS: OxyCODONE HCL 10 MG ER TABLET PO PRN ×3 (11:10→22:34)
[2022-03-27 12:16] LABS: GLUCOSE,POINT OF CARE 158 MG/DL (70-110)
[2022-03-27] MEDS ORDERED: SODIUM CHLORIDE 0.9% 2,000 ML ONE (17:25)
[2022-03-27] MEDS ORDERED: HEPARIN SODIUM,PORCINE 1,000 UNITS/ML VIAL IVCATH ONE ×2 (18:15)
[2022-03-27 18:26] LABS: GLUCOMETER DEV NAME(LOC) 5N.3; GLUCOSE,POINT OF CARE 112 MG/DL (70-110)
[2022-03-27 21:21] LABS: GLUCOSE,POINT OF CARE 223 MG/DL (70-110)
[2022-03-28 04:29] VITALS: BP 147/74
[2022-03-28 06:01] LABS: BASOPHILS % (AUTO) 1.9 % (0.0-2.0); HEMATOCRIT 33.8 % (41-53); HEMOGLOBIN 10.9 g/dL (13.5-17.5); LYMPHOCYTES % (AUTO) 16.9 % (22.0-44.0); MEAN CORPUSCULAR HGB CONC 32.4 G/dL (31.0-37.0); MEAN CORPUSCULAR VOLUME 86 fL (80-100); MONOCYTES # (AUTO) 0.6 K/uL (0.1-1.0); MONOCYTES % (AUTO) 10.8 % (2.0-9.0); NEUTROPHILS # (AUTO) 3.7 K/uL (1.8-7.7); NEUTROPHILS % (AUTO) 62.4 % (40.0-70.0); PLATELET COUNT (AUTO) 158 K/uL (150-450); RED BLOOD CELL COUNT(AUTO) 3.91 MIL/uL (4.50-5.90)
[2022-03-28 06:11] LABS: CALCIUM, TOTAL 7.9 mg/dL (8.8-10.5); CREATININE 5.45 mg/dL (0.60-1.30); POTASSIUM 4.8 mmol/L (3.5-5.1)
[2022-03-28] MEDS: OxyCODONE HCL 10 MG ER TABLET PO PRN (06:45)
[2022-03-28] MEDS ORDERED: AMLO-258 PO (07:48)
[2022-03-28] MEDS ORDERED: CLON0.3T PO (07:48)
[2022-03-28] MEDS ORDERED: HYDR50TA36 PO (07:48)
[2022-03-28 08:08] VITALS: BP 142/72
[2022-03-28] MEDS: HEPARIN SODIUM,PORCINE 5,000 UNITS/ML VIAL SQ SCH ×2 (08:52)
[2022-03-28] MEDS: ETHYL ALCOHOL 62% ANTISEPTIC NASAL SANITIZER 0.6 ML AMPUL NASAL SCH (08:52)
[2022-03-28] MEDS: PANTOPRAZOLE SODIUM 40 MG DR TABLET PO SCH (08:55)
[2022-03-28] MEDS: DOCUSATE SODIUM 100 MG CAPSULE PO SCH (08:55)
[2022-03-28] MEDS: ASPIRIN 81 MG DR TABLET PO SCH (08:55)
[2022-03-28] MEDS: HydrALAZINE HCL 20 MG/ML VIAL IVP PRN (08:55)
[2022-03-28] MEDS: AmLODIPine BESYLATE 10 MG TABLET PO SCH (08:56)
[2022-03-28] MEDS: HydrALAZINE HCL 50 MG TABLET PO SCH (08:57)
[2022-03-28 10:51] LABS: GLUCOMETER DEV NAME(LOC) 5N.3; GLUCOSE,POINT OF CARE 323 MG/DL (70-110)
[2022-03-28 10:54] VITALS: BP 157/64
[2022-03-28 11:32] LABS: GLUCOMETER DEV NAME(LOC) 5N.1C; GLUCOSE,POINT OF CARE 109 MG/DL (70-110)
[2022-03-29] MEDS ORDERED: PARICALCITOL 1 MCG CAPSULE PO SCH (09:00)
[2022-03-29 09:51] LABS: GLUCOMETER DEV NAME(LOC) 5N.3; GLUCOSE,POINT OF CARE 355 MG/DL (70-110)
== END 2022-03-28 12:40 | disposition home or self-care (01) | DRG 52 ==
LOC: EMS 00:40 → ICU 17:27 → 5N 03-27 17:05
PROVIDERS: ADMIT Internal Medicine; ATTEND Internal Medicine
PROC: 06HY33Z Insertion of Infusion Device into Lower Vein, Percutaneous Approach (ICD-10-PCS; 2022-03-26)
PROC: B54BZZA Ultrasonography of Right Lower Extremity Veins, Guidance (ICD-10-PCS; 2022-03-26)
PROC: 5A1D70Z Performance of Urinary Filtration, Intermittent, Less than 6 Hours Per Day (ICD-10-PCS; principal; 2022-03-27)
DX: G93.41 Metabolic encephalopathy (principal); E11.649 Type 2 diabetes mellitus with hypoglycemia without coma; I12.0 Hypertensive chronic kidney disease with stage 5 chronic kidney disease or end stage renal disease; D63.1 Anemia in chronic kidney disease; N18.6 End stage renal disease; E11.22 Type 2 diabetes mellitus with diabetic chronic kidney disease; I16.1 Hypertensive emergency; E78.5 Hyperlipidemia, unspecified; Z83.3 Family history of diabetes mellitus; Z99.2 Dependence on renal dialysis; Z87.891 Personal history of nicotine dependence; Z79.82 Long term (current) use of aspirin; Z79.899 Other long term (current) drug therapy; Z91.018 Allergy to other foods; Z20.822 Contact with and (suspected) exposure to COVID-19
CPT/HCPCS: 71045; 80048; 80053; 82140; 82550; 82948; 82962; 83605; 84484; 85025; 85610; 85730; 86850; 86900; 86901; 87040; 87081; 87340; 90935; 92610; 93005; 99291; G0378; J0360; J1644; J1815; J2060; J2270; J2405; J3490; J7030; J7050; J7060; 36415-L1; 36415-TC; 70450; 70450-TC